=== PATIENT | female | born 1960 | race Caucasian/White ===

== ENCOUNTER 2018-08-07 11:23 | Observation (INO) | payer OTHER ==
--- NOTE | 2018-08-07 09:47 | PDGENHP ---
History & Physical Chief Complaint: Right breast cancer History of Present Illness: 57 year old female Currently undergoing chemo and taking Cotellic/Zelboraf and Eliquis and tolerating well. Reports there are two metastatic lesions in her brain which Drs would like to address with radiation but she must 1st have an MRI. Due to TE's unable to do at this time. Plan for OR swap to implants today Recommends surgery at [facility] for an overnight stay for monitoring Pertinent Past, Social, Family History: Noncontributory Relevant Physical Exam: Heart Reg rate and rhythm. Lungs CTA B. Bilateral breast intact expanders Cardiorespiratory Assessment: CTA B. Heart regular
[~2018-08-07 11:23] MED LIST: LR 1,000 ML IV SCH
[2018-08-07] MEDS ORDERED: LR 1,000 ML IV ONE (13:10)
[2018-08-07] MEDS ORDERED: GENTAMICIN SULFATE 80 MG/2 ML VIAL ONE (13:48)
[2018-08-07] MEDS ORDERED: BACITRACIN ZINC 14.2 GM OINTTUBE TP ONE (13:48)
[2018-08-07] MEDS ORDERED: METHYLENE BLUE 0.5% 50 MG/10 ML AMP ONE (13:48)
[2018-08-07] MEDS ORDERED: ceFAZolin 1 GM/5 ML SYR ONE (13:49)
[2018-08-07] MEDS ORDERED: BACITRACIN 50,000 UNITS/10 ML SYR IRR ONE (13:49)
[2018-08-07] MEDS ORDERED: LIDOCAINE 1% 300 MG/30 ML SDV ONE (13:52)
[2018-08-07] MEDS ORDERED: EPINEPHrine 1 MG/ML INJ ONE (13:52)
[2018-08-07] MEDS ORDERED: MIDAZOLAM 2 MG/2 ML VIAL IVP ONE (14:20)
--- NOTE | 2018-08-07 14:22 | PDANEPAE ---
ANE History of Present Illness breast reconstruction ANE Past Medical History - Cardiovascular History Hx Hypertension: No Hx Arrhythmias: No Hx Chest Pain: No Hx Coronary Artery / Peripheral Vascular Disease: No Hx CHF / Valvular Disease: No Hx Palpitations: No - Pulmonary History Hx COPD: No Hx Asthma/Reactive Airway Disease: No Hx Recent Upper Respiratory Infection: No Hx Oxygen in Use at Home: No Hx Sleep Apnea: No Sleep Apnea Screening Result - Last Documented: Negative - Neurologic History Hx Cerebrovascular Accident: No Hx Seizures: No Hx Dementia: No - Endocrine History Hx Diabetes: No Hypothyroid: No Hyperthyroid: No Obesity: no - Renal History Hx Renal Disorders: No Renal History Comment: recent uti, completed levaquin course - Liver History Hx Hepatic Disorders: No - Neurological & Psychiatric Hx Hx Neurological and Psychiatric Disorders: Yes Neurological / Psychiatric History Comment: anxiety - Cancer History Hx Cancer: Yes Cancer History Comment: breast cancer currently. melanoma. currently oral chemo/ hx of radiation - Congenital Disorder History Hx Congenital Disorders: No - GI History Hx Gastrointestinal Disorders: Yes Gastrointestinal History Comment: nausea with chemo occ - Other Health History Other Health History: reading glasses. rash that is side effect from chemo- left forearm - Chronic Pain History Chronic Pain: No - Surgical History Prior Surgeries: x3. bilateral mastectomy. melanoma removed. tonsillectomy ANE Review of Systems Review of Systems: - Exercise capacity Exercise capacity: >=4 METS METS (RN): 4 METS ANE Patient History - Allergies Allergies/Adverse Reactions: Sulfa (Sulfonamide Antibiotics) Allergy (Verified 07/10/18 15:36) Flushing - Home Medications Home medications: home medication list seen and reviewed Home Medications: Cobimetinib Fumarate 07/10/18 [Last Taken 08/06/18 19:00] Compazine 10mg (*) PRN 07/10/18 [Last Taken Unknown] DEXAMETHASONE 07/10/18 [Last Taken Unknown] Eliquis 07/10/18 [Last Taken 08/01/18] Escitalopram Oxalate 07/10/18 [Last Taken 08/06/18 19:00] Ibuprofen PRN 07/10/18 [Last Taken 07/30/18] Nystatin 07/10/18 [Last Taken Unknown] Potassium Chloride 07/10/18 [Last Taken 08/07/18 07:00] Sudafedrine 07/10/18 [Last Taken Unknown] Vemurafenib 07/10/18 [Last Taken 08/07/18 09:00] Xanax 0.5 07/10/18 [Last Taken 08/07/18 07:30] traMADol 07/10/18 [Last Taken 08/04/18] - NPO status NPO Since - Liquids (Date): 08/07/18 NPO Since - Liquids (Time): 08:00 NPO Since - Solids (Date): 08/06/18 NPO Since - Solids (Time): 22:00 - Anes Hx Anes Hx: no prior problems - Smoking Hx Smoking Status: Never smoked - Family Anes Hx Family Hx Anesthesia Complications: none ANE Labs/Vital Signs - Vital Signs Blood Pressure: 149/87 Heart Rate: 92 Respiratory Rate: 16 O2 Sat (%): 96 Height: 162.56 cm Weight: 68.946 kg ANE Physical Exam - Airway Mallampati Score: Class 2 Mouth exam: normal dental/mouth exam - Pulmonary Pulmonary: no respiratory distress - Cardiovascular Cardiovascular: regular rate and rhythym - ASA Status ASA Status: II ANE Anesthesia Plan Anesthesia Plan: GA w LMA
--- NOTE | 2018-08-07 14:24 | PDHPUP ---
History & Physical Update H&P update statement: This history and physical update is based on an assessment of the patient which was completed after admission or registration (within 24 hours), but prior to the surgery/procedure. H&P update: H&P reviewed & patient examined, no change in patient's condition since H&P completed
[2018-08-07] MEDS ORDERED: DEXAMETHASONE 4 MG/ML VIAL ONE (14:31)
[2018-08-07] MEDS ORDERED: ONDANSETRON 4 MG/2 ML VIAL ONE (14:31)
[2018-08-07] MEDS ORDERED: ROPIVACAINE HCL 150 MG/30 ML INJ ONE (14:32)
[2018-08-07] MEDS ORDERED: LIDOCAINE 2% 5 ML SDV ONE (14:32)
[2018-08-07] MEDS ORDERED: fentaNYL 100 MCG/2 ML INJ ONE ×2 (14:34→16:25)
[2018-08-07] MEDS ORDERED: PROPOFOL 200 MG/20 ML VIAL ONE (14:34)
[2018-08-07] MEDS ORDERED: ACETAMINOPHEN 325 MG TAB PO PRN (14:38)
[2018-08-07] MEDS ORDERED: D5W LR 1,000 ML IV SCH (14:45)
[2018-08-07] MEDS ORDERED: PROMETHAZINE HCL 25 MG/ML INJ IVP PRN (15:48)
[2018-08-07] MEDS ORDERED: LABETALOL HCL 5 MG/ML 20 ML MDV IVP PRN (15:48)
[2018-08-07] MEDS ORDERED: DIAZEPAM 5 MG/ML 1 ML SYR IVP PRN (15:48)
[2018-08-07] MEDS ORDERED: HYDROCODONE/APAP 5/325 TAB PO PRN (15:48)
[2018-08-07] MEDS ORDERED: ALBUTEROL 3 ML DEYVIAL IH PRN (15:48)
[2018-08-07] MEDS ORDERED: LR 500 ML IV PRN (15:48)
[2018-08-07] MEDS ORDERED: ACETAMINOPHEN 500 MG TAB PO PRN (15:48)
[2018-08-07] MEDS ORDERED: NALOXONE HCL 0.4 MG/ML INJ IVP PRN (15:48)
[2018-08-07] MEDS ORDERED: ONDANSETRON 4 MG/2 ML VIAL IVP PRN (15:48)
--- NOTE | 2018-08-07 16:14 | POSTOPPROG ---
Post Op Note Date of Operation: 08/07/18 Surgeon: Judson Serrano Floor Worker Transfer Bay: Earl JIN Anesthesiologist: Nate Bae Anesthesia: LMA Pre-op Diagnosis: Right breast cancer Post-op Diagnosis: Same Indication: Bilateral TE recon Procedure: Bilateral TE swap to implants Findings: Bilateral intact implants Inf/Abcess present in the surg proc area at time of surgery?: No EBL: Minimal (20cc) Total fluids administered: 800cc Complications: none
--- NOTE | 2018-08-07 16:15 | POSTANESTH ---
Post Anesthetic Evaluation Cardiovascular Status: Normal, Stable Respiratory Status: Normal, Stable Level of Consciousness/Mental Status: Can Participate in Eval Pain Control: Adequate, Prn Tx Ordered Nausea/Vomiting Control: Adequate, Prn Tx Ordered Complications Possibly Related to Anesthesia: None Noted
[2018-08-07] MEDS ORDERED: LABETALOL HCL 5 MG/ML 20 ML MDV ONE (16:25)
[2018-08-07] MEDS ORDERED: HYDROmorphONE/DILAUDID 2 MG/ML INJ ONE (16:25)
[2018-08-07] MEDS: fentaNYL 100 MCG/2 ML INJ IVP PRN ×2 (16:28→16:49)
[2018-08-07] MEDS: HYDROmorphONE/DILAUDID 2 MG/ML INJ IVP PRN ×2 (16:31→16:49)
[2018-08-07] MEDS: OXYCODONE/APAP 5/325 TAB PO PRN ×2 (18:47→22:46)
[2018-08-07] MEDS: VEMURAFENIB 240 MG PO SCH (22:11)
[2018-08-07] MEDS: ceFAZolin 2 GM/DEXTROSE 100 ML IV SCH (22:11)
[2018-08-07] MEDS ORDERED: [UNRECOGNIZED DRUG - OTHER] PO SCH (22:30)
--- NOTE | 2018-08-07 22:32 | GOP ---
DATE OF OPERATION: 08/07/2018 SURGEON: Judson Serrano MD AWAKE OVERNIGHT COUNSELOR: Earl Yee CST ANESTHESIA: LMA ANESTHESIOLOGIST: Nate Bae MD PREOPERATIVE DIAGNOSIS: Right breast cancer and bilateral absence of breasts and nipples. POSTOPERATIVE DIAGNOSIS: Right breast cancer and bilateral absence of breasts and nipples. PROCEDURE PERFORMED: Bilateral tissue knurling machine operator exchange, 2 permanent implants, and bilateral capsulotomy. FINDINGS: Bilateral intact expanders. SPECIMENS: None. ESTIMATED BLOOD LOSS: 20. INDICATIONS: The patient is a 57-year-old female, who was unfortunately diagnosed with a right breast cancer. She underwent bilateral skin-sparing mastectomies with immediate reconstruction. She required adjuvant therapy with chemo as well as radiation to the right breast. She developed metastasis to the brain, and she is currently undergoing chemotherapy. She presents today for exchange of her tissue expanders for permanent implants. DESCRIPTION OF PROCEDURE: The patient was met in the preoperative area, where the risks and benefits were discussed with her at length, which include, but not limited to, infection, bleeding, hematoma, wound healing problems, asymmetries, injury to the implant, mastectomy skin flap necrosis and further need for revision surgery. She was agreeable to this, and therefore, signed the operative consent. She was then brought into the operating room and prior to going asleep, a time- out was performed where all in the room agreed upon the site and the procedure to be performed. She received 2 g of Ancef perioperatively prior to any incision being made for surgical prophylaxis, and SCDs were placed for DVT prophylaxis. After the patient was prepped and draped in usual sterile fashion in the supine position, we began on the right side. She had a small wound dehiscence on the right breast that was ellipsed out. This was excised down to the AlloDerm, and the part of the AlloDerm that dehisced was also excised in an elliptical fashion. We then encountered the intact knurling machine operator, which was well incorporated within the pocket. This was popped, and in a closed sterile fashion, all the saline was taken out. The knurling machine operator, which was well- incorporated in the subpectoral pocket was then removed. We then examined what little fluid collection within the right pocket. A radial capsulotomy was then performed. This was performed laterally and superiorly, as well as medially and inferiorly, and also vertical scores because the radiated pocket was very noncompliant, and we needed this to relax. This was done with electrocautery. We then put a sizer in and inflated this to 375 cc. In order not put this under any undue tension because of wound healing issues and thin skin flaps, we decided upon a 375 cc implant. This was an Allergan SCX 375 cc. This will be placed on the right. The same exact procedure was done on the left side. There was no wound dehiscence. This healed mastectomy scar was incised with a 10 blade. This was down to the AlloDerm. The AlloDerm was incised. We encountered the tissue knurling machine operator intact. All of the saline was taken out of this, and this was taken out of the subpectoral pocket. Another radial capsulotomy was then performed. This was done laterally, superiorly, and medially keeping the AlloDerm intact inferiorly. We also inflated this in order for symmetry to put a sizer in, then inflated this to 375 cc. We, therefore, selected 375 cc SCF Allergan implants to be placed on both sides. Both pockets were washed out first with sterile saline and then triple antibiotic solution. My assistant executive housekeeper and I changed our gloves, wiped the pockets out and wiped the skin off with triple antibiotic solution. I then introduced each implant into the pockets and confirmed correct orientation. The wound was then closed. The AlloDerm was reapproximated with a 2-0 Vicryl running, and the skin was approximated with 3-0 Monocryl. On the left side, 4-0 Monocryl was then run. Due to the thinness of the skin, we then did interrupt horizontal mattress sutures on the right side with 5-0 nylon. The wounds were dressed with bacitracin, Mepilex Ag dressing, and a surgical support bra. The count was correct at the end of the case. There were no immediate complications. She was awakened and taken to PACU in good condition. IV FLUIDS: 800 COMPLICATIONS: None. /[id number]/MODL MTDD
[2018-08-07] MEDS ORDERED: ALPRAZolam 0.25 MG TAB PO PRN (22:47)
[2018-08-08] MEDS: ceFAZolin 2 GM/DEXTROSE 100 ML IV SCH (04:46)
[2018-08-08] MEDS: OXYCODONE/APAP 5/325 TAB PO PRN (04:46)
[2018-08-08] MEDS: VEMURAFENIB 240 MG PO SCH (08:22)
[2018-08-08 08:26] VITALS: BP 130/88
--- NOTE | 2018-08-08 08:47 | SOAPPROG ---
SOAP Progress Note Assessment/Plan: Assessment: POD#1 s/p bilateral tissue department assistant exchange to implants Plan: 08/08/18 08:44 1. PO pain control 2. Ween O2 3. Ambulate 4. DC later today Subjective: "I feel like I didn't have surgery!" Objective: Vital Signs Temp Pulse Resp BP Pulse Ox 36.8 C 94 16 130/88 H 99 08/08/18 07:31 08/08/18 07:31 08/08/18 07:31 08/08/18 08:26 08/08/18 07:31 08/07/18 08/08/18 08/09/18 05:59 05:59 05:59 Intake Total 4195 Output Total 20 Balance 4175 NAD, A&O Bilateral breast implants intact, minimal swelling and ecchymosis - Time Spent With Patient Time Spent With Patient: 30 min - Pending Discharge Pending Discharge Within 24 Hours: Yes Pending Discharge Date: 08/09/18 Pending Discharge Time: 11:00 ICD10 Worksheet Patient Problems: Problems Problem Status Onset Breast cancer Acute - ICD10 Problem Qualifiers (1) Breast cancer
--- NOTE | 2018-08-08 11:31 | PDDCSUM ---
Discharge Summary Discharge Summary: discharge date: 08/08/18 Admission date: 08/07/18 Diagnosis: right breast cancer, bilateral absence of breasts and nipples Reason for admission: bilateral tissue car greaser exchanged permanent implants Discharge condition: good Followup: Dr. Serrano, [facility] 08/14 945 a.m. hospital course: Rebeca was admitted postoperatively for observation after the above mentioned procedures. She was restarted on a regular diet as well as her chemotherapy medications. She tolerated the procedure well without complications her pain was well-controlled on oral pain medication she will continue after receiving IV antibiotics on oral antibiotics at home. I will have her restart her Elquis next Sunday. she will be discharged in a surgical support bra her bathing and wound care instructions were given she'll follow up in my office next week all her prescriptions were buried given preoperatively. she was discharged home in good condition
--- NOTE | 2018-08-08 11:54 | ASMTLACE ---
LACE Length of stay for Answers: Less than 1 day current admission Comorbidities - select Answers: Any tumor (including all that apply lymphoma or leukemia) # of Emergency department Answers: 0 visits in the last 6 months Social determinants Answers: Mental health diagnosis (anxiety, depression, pers onality disorders, etc.) Score: 5 Date Signed: 08/08/2018 11:53 AM Electronically Signed By:Janay Hammond RN
--- NOTE | 2018-08-08 11:57 | ASMTCMCOM ---
CM Note CM Note Notes: Chart reviewed. Patient s/p tissue envelope press operator exchange post reconstruction after beast cancer. She has no identifiable needs, CM available should needs arise. Plan: DC to home independently. Date Signed: 08/08/2018 11:56 AM Electronically Signed By:Janay Hammond RN
== END 2018-08-08 13:21 | disposition home or self-care (01) ==
LOC: F3E 12:37 → F1N 15:26
PROVIDERS: ADMIT Plastic Surgery; ATTEND Plastic Surgery
PROC: 0HPT0NZ Removal of Tissue Expander from Right Breast, Open Approach (ICD-10-PCS; principal; 2018-08-07 14:00)
PROC: 0H0V0JZ Alteration of Bilateral Breast with Synthetic Substitute, Open Approach (ICD-10-PCS; principal; 2018-08-07 14:00)
PROC: 0HPU0NZ Removal of Tissue Expander from Left Breast, Open Approach (ICD-10-PCS; principal; 2018-08-07 14:00)
DX: C50.911 Malignant neoplasm of unspecified site of right female breast (principal); C79.31 Secondary malignant neoplasm of brain
CPT/HCPCS: 11970; G0378; C1789; J0171; J0690; J1100; J1170; J1580; J2250; J2405; J2704; J2795; J3010; Q9968

== ENCOUNTER → 2018-08-19 | Outpatient (CLI) | payer OTHER ==
[~2018-08-19] MED LIST changes: +ACETAMINOPHEN 325 MG TAB PO ONE; +FUROSEMIDE 20 MG/2 ML VIAL IV ONE; -LR 1,000 ML IV SCH; +diphenhydrAMINE 25 MG CAP PO ONE
== END ==
LOC: F1NOP 16:51
PROVIDERS: ATTEND Internal Medicine Hematology & Oncology
PROC: 30233N1 Transfusion of Nonautologous Red Blood Cells into Peripheral Vein, Percutaneous Approach (ICD-10-PCS; principal; 2018-08-19)
DX: C50.919 Malignant neoplasm of unspecified site of unspecified female breast (principal); Z92.21 Personal history of antineoplastic chemotherapy
CPT/HCPCS: 36430; P9016; J1642; J1940

== ENCOUNTER 2018-08-28 15:12 | Inpatient (IN) | payer OTHER ==
[2018-08-28 16:06] LABS: PLATELET COUNT 607 10^3/uL (150-400)
--- NOTE | 2018-08-28 16:52 | EDPHY ---
H & P Stated Complaint: NAUSEA/HYPOXIA TACHYCARDIA/GOT FLUIDS AY CC Time Seen by Provider: 08/28/18 15:58 HPI/ROS: CHIEF COMPLAINT: Fatigue HISTORY OF PRESENT ILLNESS: 57-year-old female with metastatic melanoma presents with excessive fatigue. She was on oral chemotherapy until last week, when the chemotherapy stopped working. She was supposed to start immunotherapy today, but her insurance did not authorize a yet. She was seen in the [facility] and received 1 L of normal saline for probable dehydration. Decreased appetite tight recently, no vomiting or diarrhea. She feels excessively fatigued and is having difficulty ambulating because of fatigue. Also complains of gradually increasing abdominal girth and discomfort from ascites. Denies abdominal pain, shortness of breath or chest pain. No fever. Last packed red blood cell transfusion 2 weeks ago. s/p paracentesis months ago. REVIEW OF SYSTEMS: complete 10 point ROS reviewed and is negative except for the noted elements in the HPI - Personal History Current Tetanus Diphtheria and Acellular Pertussis (TDAP): No - Medical/Surgical History Hx Asthma: No Hx Chronic Respiratory Disease: No Hx Diabetes: No Hx Cardiac Disease: No Hx Renal Disease: No Hx Cirrhosis: No Hx Alcoholism: No Hx HIV/AIDS: No Hx Splenectomy or Spleen Trauma: No Other PMH: tonsilectomy; 3 c-sections; breast Ca; melanoma - Social History Smoking Status: Never smoked Alcohol Use: None Drug Use: None Additional Social History: Oncologist: Dr. Phillips - Physical Exam Exam: General Appearance: Alert, pleasant Eyes: Pupils equal and round, conjunctival pallor ENT, Mouth: Mucous membranes slightly dry Neck: Normal inspection Respiratory: Lungs are clear to auscultation Cardiovascular: Regular tachycardia Gastrointestinal: Abdomen is distended, no tenderness Neurological: A&O, nonfocal exam Skin: Warm and dry Extremities: Bilateral pedal edema Psychiatric: Mood and affect normal Constitutional: Initial Vital Signs Temperature (C) 37.5 C 08/28/18 15:23 Heart Rate 134 H 08/28/18 15:23 Respiratory Rate 20 08/28/18 15:23 Blood Pressure 114/81 H 08/28/18 15:23 O2 Sat (%) 85 L 08/28/18 15:23 O2 Delivery Mode Nasal Cannula O2 (L/minute) 3 Allergies/Adverse Reactions: Sulfa (Sulfonamide Antibiotics) Allergy (Verified 08/28/18 15:21) [place] Home Medications: Medication Instructions Recorded ALPRAZolam [Xanax 0.5 MG (*)] 0.5 mg PO TID PRN 07/10/18 Apixaban [Eliquis] 5 mg PO BID 07/10/18 Ibuprofen [Ibu] 600 mg PO TID PRN 07/10/18 Potassium Chloride [Klor-Con M20] 20 meq PO DAILY 07/10/18 Prochlorperazine Maleate 10 mg PO TID PRN 07/10/18 [Compazine 10mg (*)] traMADol [Ultram 50 mg (*)] 50 mg PO Q4 PRN 07/10/18 Furosemide [Lasix 20 MG (*)] 20 mg PO HS 08/28/18 Lisinopril [Zestril 10 mg (*)] 10 mg PO DAILY 08/28/18 Nystatin [Nystatin] 5 ml PO TID PRN 08/28/18 Ondansetron HCl [Zofran] 8 mg PO Q8H PRN 08/28/18 Medical Decision Making - Diagnostics EKG Interpretation: EKG interpreted by me reveals sinus tachycardia, rate 126, low voltage in the limb leads, poor R-wave progression. Interpretation: Abnormal EKG Imaging Results: Imaging Impressions Chest X-Ray 08/28/18 15:58 Impression: Hypoventilation and bibasilar atelectasis. Imaging: I viewed and interpreted images myself ED Course/Re-evaluation: This is a complicated patient with metastatic melanoma who presents mainly with fatigue. Fatigue is secondary to severe anemia, with a hemoglobin of 8. 1 unit packed red blood cells ordered. Tachycardia is probably secondary to dehydration as well as severe anemia. Will hold off on further IV fluids, given that she will need at least 2 units of packed red blood cells, and already has anasarca/tense ascites. Paracentesis will be performed tomorrow as inpatient. No indication for emergent paracentesis this evening. In addition, there is no evidence for infection. Chest x-ray reveals no evidence of pneumonia, abdomen is soft and nontender and I do not suspect SBP. The hospitalist service was consulted for admission. Dr. Carlita Rice was consulted and saw the patient in the ED. Differential Diagnosis: Differential diagnosis includes though is not limited to infectious etiology such as pneumonia or urinary tract infection, hyponatremia, acute coronary syndrome, pulmonary embolism - Data Points Laboratory Results: Laboratory Results 08/28/18 15:45 08/28/18 15:45 08/28/18 08/28/18 08/28/18 15:45 15:45 13:45 WBC 13.92 10^3/uL H 10^3/uL (3.80-9.50) RBC 2.23 10^6/uL L 10^6/uL (4.18-5.33) Hgb 6.7 g/dL L g/dL (12.6-16.3) Hct 21.3 % L % (38.0-47.0) MCV 95.5 fL fL (81.5-99.8) MCH 30.0 pg pg (27.9-34.1) MCHC 31.5 g/dL L g/dL (32.4-36.7) RDW 16.7 % H % (11.5-15.2) Plt Count 607 10^3/uL H 10^3/uL (150-400) MPV 9.1 fL fL (8.7-11.7) Neut % (Auto) Not Reported Lymph % (Auto) Not Reported Garland % (Auto) Not Reported Eos % (Auto) Not Reported Baso % (Auto) Not Reported Nucleat RBC Rel Count Not Reported Absolute Neuts (auto) Not Reported Absolute Lymphs (auto) Not Reported Absolute Monos (auto) Not Reported Absolute Eos (auto) Not Reported Absolute Basos (auto) Not Reported Absolute Nucleated RBC Not Reported Immature Gran % Not Reported Seg Neutrophils % 84.8 % % Band Neutrophils % 4.0 % % Lymphocytes % 5.1 % % Monocytes % 5.1 % % Eosinophils % 0.0 % % Basophils % 0.0 % % Metamyelocytes % 0.0 % % Myelocytes % 0.0 % % Promyelocytes % 0.0 % % Blast Cells % 0.0 % % Immature Gran # Not Reported Absolute Seg Neuts 11.80 10^3/uL H 10^3/uL (1.70-6.50) Absolute Band Neuts 0.56 10^3/uL 10^3/uL (0.00-0.70) Absolute Lymphocytes 0.71 10^3/uL L 10^3/uL (1.00-3.00) Absolute Monocytes 0.71 10^3/uL 10^3/uL (0.30-0.80) Absolute Eosinophils 0.00 10^3/uL L 10^3/uL (0.03-0.40) Absolute Basophils 0.00 10^3/uL L 10^3/uL (0.02-0.10) Absolute Metamyelocyte 0.00 10^3/mL 10^3/mL (0.00-0.00) Absolute Myelocytes 0.00 10^3/mL 10^3/mL (0.00-0.00) Absolute Promyelocytes 0.00 10^3/uL 10^3/uL (0.00-0.00) Absolute Plasma Cells 0.00 10^3/uL 10^3/uL (0.00-0.00) Nucleated RBCs 0 /100 WBC /100 WBC (0-0) Absolute Blast Cells 0.00 10^3/uL 10^3/uL (0.00-0.00) Plasma Cells % 0.0 % % Platelet Estimate INCREASED H (ADEQ) Polychromasia 1+ H Microcytic Cells 1+ H Oval Macrocytes 1+ H Elliptocytes 1+ H Smear Review By Pending PT 15.6 SEC H SEC (12.0-15.0) INR 1.22 H (0.83-1.16) APTT 30.2 SEC SEC (23.0-38.0) Sodium 129 mEq/L L mEq/L (135-145) Potassium 3.6 mEq/L mEq/L (3.3-5.0) Chloride 95 mEq/L L mEq/L (97-110) Carbon Dioxide 24 mEq/l mEq/l (22-31) Anion Gap 10 mEq/L mEq/L (6-14) BUN 22 mg/dL mg/dL (7-23) Creatinine 0.7 mg/dL mg/dL (0.6-1.0) Estimated GFR > 60 Glucose 138 mg/dL H mg/dL (70-100) Calcium 8.3 mg/dL L mg/dL (8.5-10.4) Total Bilirubin Conjugated Bilirubin Unconjugated Bilirubin AST ALT Alkaline Phosphatase Total Protein Albumin Lipase 08/28/18 13:45 WBC RBC Hgb Hct MCV MCH MCHC RDW Plt Count MPV Neut % (Auto) Lymph % (Auto) Gar[place] % (Auto) Eos % (Auto) Baso % (Auto) Nucleat RBC Rel Count Absolute Neuts (auto) Absolute Lymphs (auto) Absolute Monos (auto) Absolute Eos (auto) Absolute Basos (auto) Absolute Nucleated RBC Immature Gran % Seg Neutrophils % Band Neutrophils % Lymphocytes % Monocytes % Eosinophils % Basophils % Metamyelocytes % Myelocytes % Promyelocytes % Blast Cells % Immature Gran # Absolute Seg Neuts Absolute Band Neuts Absolute Lymphocytes Absolute Monocytes Absolute Eosinophils Absolute Basophils Absolute Metamyelocyte Absolute Myelocytes Absolute Promyelocytes Absolute Plasma Cells Nucleated RBCs Absolute Blast Cells Plasma Cells % Platelet Estimate Polychromasia Microcytic Cells Oval Macrocytes Elliptocytes Smear Review By PT INR APTT Sodium Potassium Chloride Carbon Dioxide Anion Gap BUN Creatinine Estimated GFR Glucose Calcium Total Bilirubin 1.3 mg/dL mg/dL (0.1-1.4) Conjugated Bilirubin 0.5 mg/dL mg/dL (0.0-0.5) Unconjugated Bilirubin 0.8 mg/dL mg/dL (0.0-1.1) AST 31 IU/L IU/L (14-46) ALT 44 IU/L IU/L (9-52) Alkaline Phosphatase 108 IU/L IU/L (38-126) Total Protein 7.2 g/dL g/dL (6.3-8.2) Albumin 3.9 g/dL g/dL (3.5-5.0) Lipase 122 IU/L IU/L (23-300) Medications Given: Acetaminophen (Tylenol) 650 mg PO Q4HRS PRN PRN Reason: Pain, Mild/Fever, Can Take PO Stop: 02/24/19 17:57 Last Admin: 08/28/18 18:29 Dose: 650 mg Hydromorphone HCl (Dilaudid) 0.2 - 0.4 mg IVP Q4HRS PRN PRN Reason: Pain, Severe Unable to Take PO Stop: 09/07/18 17:57 Last Admin: 08/28/18 20:48 Dose: 0.4 mg Departure - Departure Disposition: [facility]
[2018-08-28 17:17] LABS: INR 1.22 (0.83-1.16); PROTIME(PATIENT) 15.6 SEC (12.0-15.0)
[2018-08-28] MEDS ORDERED: HYDROCODONE/APAP 5/325 TAB PO PRN (17:58)
[2018-08-28] MEDS ORDERED: ONDANSETRON DISINTEGRATING 4 MG TAB PO PRN ×2 (17:58→21:48)
[2018-08-28] MEDS: ACETAMINOPHEN 325 MG TAB PO PRN (18:29)
--- NOTE | 2018-08-28 20:16 | GCON ---
REFERRING PHYSICIAN: Gabriela Hutchinson MD REASON FOR CONSULTATION: Metastatic melanoma. HPI: The patient is a 57-year-old woman with metastatic melanoma. She is followed by Dr. Phillips. She had a stage IIC (T4b N0) melanoma of the abdominal wall 10/2016. She was diagnosed in February with metastatic disease to liver, brain and bone. Testing demonstrated a BRAF mutation. She began vemurafenib and cobimetinib in March. She responded very well but developed progression in July. A PET scan (08/21/2018) demonstrated diffuse peritoneal carcinomatosis , a small right pleural effusion and multiple new bone metastases. Plans were made for her to begin immunotherapy with ipilimumab and nivolumab, but insurance authorization has not yet been obtained. She is admitted today with increasing abdominal distention and hypoxia. She is accompanied by one of her daughters. PAST MEDICAL HISTORY: 1. Metastatic melanoma, as above. 2. Clinical IIIA (T3 N1) invasive ductal carcinoma of the right breast, diagnosed 09/2016. ER positive, TN negative, HER-2 FISH negative, Ki67 20%. She received neoadjuvant chemotherapy with dose-dense AC followed by weekly Taxol. She had bilateral mastectomies 07/2017. Pathology demonstrated 1.5 cm of residual disease in the breast and 1 positive lymph node. She received PMRT. Xeloda was administered during part of PMRT, but was discontinued due to skin toxicity. She completed her reconstruction 08/07/2018, with Dr. Serrano. She is on anastrazole. 3. Left port-associated IJ clot, approximately 04/2018; Eliquis since then. PAST SURGICAL HISTORY: As above. CURRENT MEDICATIONS: Anastrozole 1 mg daily, Eliquis 5 mg twice daily, citalopram 10 mg daily, Lasix 20 mg daily, Zofran p.r.n., tramadol p.r.n., Xanax p.r.n. ALLERGIES: No known drug allergies. SOCIAL HISTORY: She lives with one of her daughters. FAMILY HISTORY: Half-brother had lymphoma; paternal aunt, breast cancer; maternal aunt, brain tumor. REVIEW OF SYSTEMS: GENERAL: Fatigue. No fever or chills. HEENT: No vision changes. No mucositis. CARDIOVASCULAR: No chest pain, palpitations. She has noted no significant lower extremity edema. RESPIRATORY: She noted low oxygen level at home. No orthopnea. No PND. No wheezing or cough. GI: Slight nausea. No diarrhea, constipation or GI bleeding. Per HPI. HEMATOLOGIC: No bleeding. BREASTS: No erythema over the incisions. No pain. MUSCULOSKELETAL : No new bony complaints. She had some right upper extremity lymphedema following her mastectomy, which has improved. NEUROLOGIC: No headache, numbness, weakness, confusion. PHYSICAL EXAM: VITAL SIGNS: Blood pressure 128/83, pulse 123, respirations 16 , 98% on room air, afebrile. GENERAL: A very pleasant woman in no acute distress. Comfortable lying flat. Alert and oriented. HEENT: No scleral icterus. CARDIOVASCULAR: Tachy. Regular rate and rhythm. No significant pretibial edema. LUNGS: Supine exam, clear to auscultation. ABDOMEN: Distended, tense. No focal tenderness. SKIN: Pale. No petechiae, ecchymoses. Well-healed long incision over the upper abdomen (prior melanoma excision). NEUROLOGIC: Grossly nonfocal. LABORATORY STUDIES: WBC 13.9, normal differential, hemoglobin 6.7, platelets 607,000. (08/23/2018) hemoglobin 9.9, platelets 500,000. Sodium 129, potassium 3.6, chloride 95, bicarbonate 24, BUN 22, creatinine 0.7, glucose 138. Calcium 8.3, albumin 3.9, normal LFTs. Albumin 3.9. PT 15.6, INR 1.22, PTT 30.2. Venous lactate 0.8. RADIOLOGIC STUDIES: Chest x-ray demonstrated low lung volumes with bilateral perihilar and bibasilar atelectasis. No effusion. IMPRESSION: 1. Metastatic melanoma with peritoneal carcinomatosis. 2. Acute on chronic anemia. 3. History of left IJ port-associated deep venous thrombosis, on anticoagulation with Eliquis. 4. History of stage III right breast cancer, ER positive, TN negative, HER-2 negative, status post neoadjuvant chemotherapy, PMRT, now on endocrine therapy with anastrozole. PLAN: She will have a therapeutic paracentesis if an appropriate fluid pocket is demonstrated by ultrasound. She will be transfused. She has had no obvious bleeding by history. She has no evidence of hemolysis (normal bilirubin). If her hemoglobin does not respond appropriately to transfusion, consider CT to evaluate for retroperitoneal hematoma, etc. Discussed with Dr. Hutchinson. /[id number]/MODL MTDD
[2018-08-28] MEDS: HYDROmorphONE/DILAUDID 1 MG/ML INJ IVP PRN (20:48)
--- NOTE | 2018-08-28 21:05 | PDGENHP ---
History and Physical - Chief Complaint abdominal distension - History of Present Illness 57 yo F with PMH of metastatic melanoma with mets to liver, bone, brain and peritoneal carcinomatosis as well as stage 3a invasive ductal carcinoma of right breast admitted with increased abdominal distension and pain as well as increased fatigue and sob. She had previously been responding well to therapy with vemurafenib and cobimetinib but has since progressed since July by PET scan and is now awaiting insurance approval to begin new immunotherapy. She otherwise denies any new sxs really other than increased abdominal distension with associated sob and early satiety. She denies fever, cough, or significant pain anywhere--she notes she is generally uncomfortable however. History Information - Allergies/Home Medication List Allergies/Adverse Reactions: Sulfa (Sulfonamide Antibiotics) Allergy (Verified 08/28/18 15:21) [place] Home Medications: ALPRAZolam [Xanax 0.5 MG (*)] 0.5 mg PO TID PRN 07/10/18 [Last Taken 08/28/18 13 :00] Apixaban [Eliquis] 5 mg PO BID 07/10/18 [Last Taken 08/28/18 09:00] Ibuprofen [Ibu] 600 mg PO TID PRN 07/10/18 [Last Taken 08/28/18 13:00] Potassium Chloride [Klor-Con M20] 20 meq PO DAILY 07/10/18 [Last Taken 08/28/18] Prochlorperazine Maleate [Compazine 10mg (*)] 10 mg PO TID PRN 07/10/18 [Last Taken 08/28/18 09:00] traMADol [Ultram 50 mg (*)] 50 mg PO Q4 PRN 07/10/18 [Last Taken 08/28/18 14:00] Furosemide [Lasix 20 MG (*)] 20 mg PO HS 08/28/18 [Last Taken 08/27/18] Lisinopril [Zestril 10 mg (*)] 10 mg PO DAILY 08/28/18 [Last Taken 08/28/18] Nystatin [Nystatin] 5 ml PO TID PRN 08/28/18 [Last Taken 08/27/18] Ondansetron HCl [Zofran] 8 mg PO Q8H PRN 08/28/18 [Last Taken Unknown] I have personally reviewed and updated: family history, medical history, social history, surgical history - Past Medical History cancer (metastatic melanoma and stage 3 breast cancer) Additional medical history: IJ associated clot - Surgical History Reports: mastectomy (bilateral and reconstruction) - Family History Positive for: cancer (aunt with breast and another aunt with brain) - Social History Smoking Status: Never smoked Alcohol Use: None Drug Use: None Review of Systems Review of Systems: ROS: 10pt was reviewed & negative except for what was stated in HPI & below Physical Exam Physical Exam: Temp Pulse Resp BP Pulse Ox 37.8 C 118 H 18 109/64 99 08/28/18 19:19 08/28/18 19:19 08/28/18 19:19 08/28/18 19:19 08/28/18 19:19 O2 (L/minute) 3 Constitutional: no apparent distress, chronically ill appearing, uncomfortable Eyes: PERRL, anicteric sclera Ears, Nose, Mouth, Throat: moist mucous membranes, hearing normal Cardiovascular: regular rate and rhythym, no murmur, rub, or gallop, edema Respiratory: no respiratory distress, inspiratory crackles Gastrointestinal: ascites, distension, No no palpable masses, No tenderness, No guarding, No rebound Genitourinary: no bladder tenderness Skin: warm, normal color Musculoskeletal: no muscle tenderness Neurologic: AAOx3 Psychiatric: interacting appropriately, not anxious, not encephalopathic Lab Data & Imaging Review 08/28/18 15:45 08/28/18 15:45 WBC 13.92 10^3/uL (3.80-9.50) H 08/28/18 15:45 RBC 2.23 10^6/uL (4.18-5.33) L 08/28/18 15:45 Hgb 6.7 g/dL (12.6-16.3) L 08/28/18 15:45 Hct 21.3 % (38.0-47.0) L 08/28/18 15:45 MCV 95.5 fL (81.5-99.8) 08/28/18 15:45 MCH 30.0 pg (27.9-34.1) 08/28/18 15:45 MCHC 31.5 g/dL (32.4-36.7) L 08/28/18 15:45 RDW 16.7 % (11.5-15.2) H 08/28/18 15:45 Plt Count 607 10^3/uL (150-400) H 08/28/18 15:45 MPV 9.1 fL (8.7-11.7) 08/28/18 15:45 Neut % (Auto) Not Reported 08/28/18 15:45 Lymph % (Auto) Not Reported 08/28/18 15:45 [place] % (Auto) Not Reported 08/28/18 15:45 Eos % (Auto) Not Reported 08/28/18 15:45 Baso % (Auto) Not Reported 08/28/18 15:45 Nucleat RBC Rel Count Not Reported 08/28/18 15:45 Absolute Neuts (auto) Not Reported 08/28/18 15:45 Absolute Lymphs (auto) Not Reported 08/28/18 15:45 Absolute Monos (auto) Not Reported 08/28/18 15:45 Absolute Eos (auto) Not Reported 08/28/18 15:45 Absolute Basos (auto) Not Reported 08/28/18 15:45 Absolute Nucleated RBC Not Reported 08/28/18 15:45 Immature Gran % Not Reported 08/28/18 15:45 Seg Neutrophils % 84.8 % 08/28/18 15:45 Band Neutrophils % 4.0 % 08/28/18 15:45 Lymphocytes % 5.1 % 08/28/18 15:45 Monocytes % 5.1 % 08/28/18 15:45 Eosinophils % 0.0 % 08/28/18 15:45 Basophils % 0.0 % 08/28/18 15:45 Metamyelocytes % 0.0 % 08/28/18 15:45 Myelocytes % 0.0 % 08/28/18 15:45 Promyelocytes % 0.0 % 08/28/18 15:45 Blast Cells % 0.0 % 08/28/18 15:45 Immature Gran # Not Reported 08/28/18 15:45 Absolute Seg Neuts 11.80 10^3/uL (1.70-6.50) H 08/28/18 15:45 Absolute Band Neuts 0.56 10^3/uL (0.00-0.70) 08/28/18 15:45 Absolute Lymphocytes 0.71 10^3/uL (1.00-3.00) L 08/28/18 15:45 Absolute Monocytes 0.71 10^3/uL (0.30-0.80) 08/28/18 15:45 Absolute Eosinophils 0.00 10^3/uL (0.03-0.40) L 08/28/18 15:45 Absolute Basophils 0.00 10^3/uL (0.02-0.10) L 08/28/18 15:45 Absolute Metamyelocyte 0.00 10^3/mL (0.00-0.00) 08/28/18 15:45 Absolute Myelocytes 0.00 10^3/mL (0.00-0.00) 08/28/18 15:45 Absolute Promyelocytes 0.00 10^3/uL (0.00-0.00) 08/28/18 15:45 Absolute Plasma Cells 0.00 10^3/uL (0.00-0.00) 08/28/18 15:45 Nucleated RBCs 0 /100 WBC (0-0) 08/28/18 15:45 Absolute Blast Cells 0.00 10^3/uL (0.00-0.00) 08/28/18 15:45 Plasma Cells % 0.0 % 08/28/18 15:45 Platelet Estimate INCREASED (ADEQ) H 08/28/18 15:45 Polychromasia 1+ H 08/28/18 15:45 Microcytic Cells 1+ H 08/28/18 15:45 Oval Macrocytes 1+ H 08/28/18 15:45 Elliptocytes 1+ H 08/28/18 15:45 PT 15.6 SEC (12.0-15.0) H 08/28/18 13:45 INR 1.22 (0.83-1.16) H 08/28/18 13:45 APTT 30.2 SEC (23.0-38.0) 08/28/18 13:45 VBG Lactic Acid 0.8 mmol/L (0.7-2.1) 08/28/18 17:09 Sodium 129 mEq/L (135-145) L 08/28/18 15:45 Potassium 3.6 mEq/L (3.3-5.0) 08/28/18 15:45 Chloride 95 mEq/L (97-110) L 08/28/18 15:45 Carbon Dioxide 24 mEq/l (22-31) 08/28/18 15:45 Anion Gap 10 mEq/L (6-14) 08/28/18 15:45 BUN 22 mg/dL (7-23) 08/28/18 15:45 Creatinine 0.7 mg/dL (0.6-1.0) 08/28/18 15:45 Estimated GFR > 60 08/28/18 15:45 Glucose 138 mg/dL (70-100) H 08/28/18 15:45 Calcium 8.3 mg/dL (8.5-10.4) L 08/28/18 15:45 Total Bilirubin 1.3 mg/dL (0.1-1.4) 08/28/18 13:45 Conjugated Bilirubin 0.5 mg/dL (0.0-0.5) 08/28/18 13:45 Unconjugated Bilirubin 0.8 mg/dL (0.0-1.1) 08/28/18 13:45 AST 31 IU/L (14-46) 08/28/18 13:45 ALT 44 IU/L (9-52) 08/28/18 13:45 Alkaline Phosphatase 108 IU/L (38-126) 08/28/18 13:45 Total Protein 7.2 g/dL (6.3-8.2) 08/28/18 13:45 Albumin 3.9 g/dL (3.5-5.0) 08/28/18 13:45 Lipase 122 IU/L (23-300) 08/28/18 13:45 Patient ABO/Rh A POSITIVE 08/28/18 17:04 Antibody Screen NEGATIVE 08/28/18 17:04 Crossmatch IS Only See Detail 08/28/18 17:04 Visualized and Interpreted Chest x-ray results: Yes Chest X-Ray results: no infiltrate, other (hypoventilation, bibasilar atelectasis) Visualized and Interpreted EKG results: Yes EKG Interpretation: Positive for: normal sinsus rhythm Assessment & Plan Assessment: 57 yo F with hx of metastatic melanoma as well as stage 3 breast cancer admitted with increased abdominal distension and generalized malaise # abdominal distension: with known peritoneal carcinomatosis and while this could represent progression of disease may also be ascites. US pending, if significant ascites present will proceed with paracentesis. Oncology evaluated. # acute on chronic anemia: per daughter last transfusion was last week--in review of labs it appears that pre-transfusion her hgb was 6.9, then up to 9 and now back to 6.7. Nothing to suggest active bleeding. Last chemo in July sounds like so unclear if counts are still low due to that. Will transfuse, will check occult blood. Given abd distension could be slow retroperitoneal bleed but seems less likely given low counts last week as well. trending. # metastatic melanoma/stage 3 breast cancer: appreciate oncology input, currently treatment for melanoma on hold as above # hx of IJ associated clot: on apixaban, will hold for now given worsening anemia # acute hypoxic respiratory failure: on arrival o2 sats of 85% on RA, improved to mid 90s on 3L, suspect related to abdominal distension and atelectasis, IS, ? paracentesis as above # generalized weakness: in the setting of above and progression of disease, pt/ ot to be involved # IP status, will require > 48 hours stay for eval/mgmt of above Patient new to my care. Old records reviewed and summarized as above. Care plan reviewed with ER doctor and Dr. Rice, further hx obtained from patients daughter present at bedside.
[2018-08-28] MEDS ORDERED: NYSTATIN SUSP 500000 UNIT/5 ML UD LIQ PO PRN (21:48)
--- NOTE | 2018-08-28 23:35 | CPEKG ---
Test Reason : OPEN Blood Pressure : / mmHG Vent. Rate : 126 BPM Atrial Rate : 126 BPM P-R Int : 137 ms QRS Dur : 080 ms QT Int : 315 ms P-R-T Axes : 042 -05 061 degrees QTc Int : 457 ms Sinus tachycardia Low voltage, precordial leads Consider anterior infarct Confirmed by Genevieve Ramires ([id number]) on 08/28/2018 11:34:52 PM Referred By: Confirmed By:Genevieve Ramires
[2018-08-29] MEDS: HYDROmorphONE/DILAUDID 1 MG/ML INJ IVP PRN ×2 (07:37→11:29)
[2018-08-29] MEDS ORDERED: LISINOPRIL 10 MG TAB PO SCH (09:00)
[2018-08-29] MEDS ORDERED: FUROSEMIDE 20 MG TAB PO SCH (09:00)
[2018-08-29 09:56] LABS: PLATELET COUNT 536 10^3/uL (150-400)
[2018-08-29] MEDS: ONDANSETRON 4 MG/2 ML VIAL IVP PRN (10:02)
--- NOTE | 2018-08-29 10:02 | PDMN ---
Medical Necessity Medical necessity: Pt meets inpt criteria per MD order and Oncology GRG and Respiratory Failure GRG. 57 y/o w/hx of metastatic melanoma w/peritoneal carcinomatosis and stage 3 breast cancer presenting w/increased abdominal distension/pain, gen malaise, acute hypoxic resp failure w/RA sats of 85%, severe anemia w/H&H of 6.7/21.3 requiring transfusion. IV Dilaudid for pain, suppl O2, oncology consult, abd US pending (may need paracentesis depending on US findings). Anticipate>2MN for further eval/management of above.
[2018-08-29] MEDS ORDERED: LIDOCAINE 1% 300 MG/30 ML SDV ONE (11:36)
[2018-08-29] MEDS ORDERED: ALBUMIN 25% 100 ML IV ONE (12:12)
--- NOTE | 2018-08-29 12:59 | ASMTCMCOM ---
CM Note CM Note Notes: Discussed pt's case in rounds. Pt admitted for abdominal pain, ascites, anemia in the setting of metastatic melanoma with mets to liver, bone and brain. Pt current with [facility]. Referral sent to them. Pt to receive paracentesis today and discuss the possibility of placing a permanent drain with the hospitalist. Therapy evals pending. D/C needs TBD. D/C Plan: [facility] and possibly home health RN? Date Signed: 08/29/2018 12:57 PM Electronically Signed By:Karina Soto
[2018-08-29] MEDS ORDERED: ALBUMIN 25% 200 ML IV ONE ×2 (14:17→20:12)
--- NOTE | 2018-08-29 14:29 | HOSPPROG ---
Hospitalist Progress Note Assessment/Plan: 57 yo f w metastatic melanoma here w ascites ascites: s/p therapeutic paracentesis she is still pursuing immunotherapy for CA so not a time for a palliative drain hypotension: 2/2 volume loss from paracentesis give albumin again dc lisinopril- hasnt taken it in a while dc lasix- minimal role in management of malignant ascites melanoma: plans for immunotherapy proph: anticoagulated as outpt uti: + UA w sx and low grade temp start ceftriaxone\ dispo: home if less hypotensive Subjective: case d/w dr call. symptomaic improvement but hypotension after 7 L paracentesis Objective: Vital Signs Temp Pulse Resp BP Pulse Ox 36.9 C 110 H 20 87/47 L 95 08/29/18 08:13 08/29/18 08:13 08/29/18 08:13 08/29/18 13:51 08/29/18 08:13 Laboratory Results 08/29/18 08:27 08/29/18 08:27 08/28/18 08/29/18 08/30/18 05:59 05:59 05:59 Intake Total 400 Output Total 250 6900 Balance 150 -6900 PT 15.6 SEC (12.0-15.0) H 08/28/18 13:45 INR 1.22 (0.83-1.16) H 08/28/18 13:45 - Physical Exam Constitutional: no apparent distress, appears nourished Eyes: PERRL, anicteric sclera Ears, Nose, Mouth, Throat: moist mucous membranes, hearing normal Cardiovascular: regular rate and rhythym, no murmur, rub, or gallop Respiratory: no respiratory distress, no rales or rhonchi Gastrointestinal: normoactive bowel sounds, soft, non-tender abdomen, ascites Genitourinary: no bladder fullness, No holguin in urethra Skin: warm Musculoskeletal: full muscle strength, no muscle tenderness Neurologic: AAOx3 ICD10 Worksheet Patient Problems: Problems Problem Status Onset Breast cancer Acute
--- NOTE | 2018-08-29 15:48 | SOAPPROG ---
SOAP Progress Note Assessment/Plan: Assessment: 1. Metastatic melanoma-Progressive disease after BRAF/MEK inhibitor. Patient to start ipi/nivo soon. 2. Malignant ascites-s/p large volume paracentesis. Feels better. Getting albumin Plan: MRI of brain with conscience sedation is scheduled next week for staging. Will try to arrange for tomorrow. Anticipate discharge soon with follow up with Dr. Phillips. 08/29/18 15:44 Subjective: patient sleeping. requests that I not wake her. Objective: Vital Signs Temp Pulse Resp BP Pulse Ox 36.9 C 110 H 20 87/47 L 95 08/29/18 08:13 08/29/18 08:13 08/29/18 08:13 08/29/18 13:51 08/29/18 08:13 Laboratory Results 08/29/18 08:27 08/29/18 08:27 08/28/18 08/29/18 08/30/18 05:59 05:59 05:59 Intake Total 400 Output Total 250 6900 Balance 150 -6900 PT 15.6 SEC (12.0-15.0) H 08/28/18 13:45 INR 1.22 (0.83-1.16) H 08/28/18 13:45 Physical Exam - Physical Exam General Appearance: no apparent distress ICD10 Worksheet Patient Problems: Problems Problem Status Onset Breast cancer Acute
[2018-08-29] MEDS: ACETAMINOPHEN 325 MG TAB PO PRN ×2 (17:21→23:41)
[2018-08-29] MEDS ORDERED: NS 1,000 ML IV SCH (20:15)
[2018-08-30] MEDS: CALCIUM CARBONATE 500 MG CHEWABLE TAB PO PRN (03:26)
[2018-08-30 03:59] LABS: PLATELET COUNT 398 10^3/uL (150-400)
[2018-08-30] MEDS: ONDANSETRON 4 MG/2 ML VIAL IVP PRN (07:54)
[2018-08-30] MEDS: HYDROmorphONE/DILAUDID 1 MG/ML INJ IVP PRN ×2 (09:11→12:53)
--- NOTE | 2018-08-30 11:16 | HOSPPROG ---
Hospitalist Progress Note Assessment/Plan: 57 yo female, metastatic melanoma admitted because of symptomatic ascites ascites: s/p therapeutic large volume paracentesis yesterday -pursuing immunotherapy so no palliative drain placed hypotension: 2/2 volume loss from paracentesis -given albumin -dc lisinopril/lasix -gentle IVF hydration anemia -agreeable to transfusion melanoma: plans for immunotherapy -MRI today with anesthesia for sedation uti: + UA w sx and tmax 101 yesterday -ceftriaxone IV pending culture DVT prophy: anticoagulated as outpt with eliquis/on hold currently dispo: possible discharge tomorrow depending upon BP, re-eval after transfusion Subjective: Feeling OK, family in room. Very nervous about MRI, requesting sedation. Objective: Vital Signs Temp Pulse Resp BP Pulse Ox 98.6 F 105 H 16 88/48 L 95 08/30/18 07:32 08/30/18 07:32 08/30/18 07:32 08/30/18 07:32 08/30/18 07:32 Laboratory Results 08/30/18 03:30 08/29/18 08:27 08/28/18 08/29/18 08/30/18 11:59 11:59 11:59 Intake Total 400 2090 Output Total 250 7250 Balance 150 -5160 PT 15.6 SEC (12.0-15.0) H 08/28/18 13:45 INR 1.22 (0.83-1.16) H 08/28/18 13:45 - Time Spent With Patient Time Spent with Patient: greater than 35 minutes Time Spent with Patient: Greater than 35 minutes spent on this patients care, greater than 50% of time spent counseling, educating, and coordinating care regarding the above mentioned plan. - Physical Exam Constitutional: chronically ill appearing Ears, Nose, Mouth, Throat: moist mucous membranes, hearing normal Cardiovascular: tachycardia Respiratory: no respiratory distress, no rales or rhonchi, clear to auscultation Gastrointestinal: distension, No tenderness Skin: warm Psychiatric: interacting appropriately, not anxious, not encephalopathic, thought process linear ICD10 Worksheet Patient Problems: Problems Problem Status Onset Breast cancer Acute
[2018-08-30] MEDS: ALPRAZolam 0.25 MG TAB PO PRN (13:22)
--- NOTE | 2018-08-30 14:29 | ASMTCMCOM ---
CM Note CM Note Notes: Pt lives with daughter and son-in-law and had paracentesis yesterday, then had hypotension. PT recommending home care and pt has worked with [facility] in the past and liked them. Referral sent to [facility]. Likely discharge for tomorrow. [facility] as [facility]. CM to follow. D/C Plan: Home with HC, likely [facility], pending acceptance. Date Signed: 08/30/2018 02:25 PM Electronically Signed By:Karina Soto
[2018-08-30] MEDS ORDERED: PROPOFOL/EMULSION 500 MG/50 ML BOTTLE IV ONE (15:56)
[2018-08-30] MEDS ORDERED: PROPOFOL 200 MG/20 ML VIAL ONE (15:56)
[2018-08-30] MEDS ORDERED: MIDAZOLAM 2 MG/2 ML VIAL ONE (16:07)
[2018-08-30] MEDS ORDERED: GADOBUTROL 10 ML VIAL IVP ONE (16:13)
--- NOTE | 2018-08-30 16:56 | SOAPPROG ---
SOAP Progress Note Assessment/Plan: A/P: * Peritoneal carcinomatosis, ascties: s/p large volume tap (6.9 L) yesterday. * Metastatic melanoma: progressed on BRAF-directed therapy, plan for ipi/nivo when insurance auth obtained. * Anemia: no clinical evidence of bleeding, Eliquis held for paracentesis. Transfused. * h/o port-assoc. IJ clot: Eliquis held for procedure. Likely home soon if anemia stable. 08/30/18 16:53 Subjective: Pt not on floor (getting MRI). O: VS reviewed. Laboratory Tests 08/30/18 08/30/18 08/30/18 03:30 14:20 14:20 WBC 11.68 H Hgb 6.2 L 7.6 L Hct 19.1 L 23.1 L Plt Count 398 Sodium 131 L Potassium 4.0 Chloride 99 Carbon Dioxide 25 BUN 26 H Creatinine 0.8 Glucose 90 Objective: Vital Signs Temp Pulse Resp BP Pulse Ox 37.9 C 110 H 16 90/57 L 95 08/30/18 12:00 08/30/18 12:00 08/30/18 12:00 08/30/18 12:00 08/30/18 07:32 Laboratory Results 08/30/18 14:20 08/30/18 14:20 08/29/18 08/30/18 08/31/18 05:59 05:59 05:59 Intake Total 400 2090 Output Total 250 7250 Balance 150 -5160 PT 15.6 SEC (12.0-15.0) H 08/28/18 13:45 INR 1.22 (0.83-1.16) H 08/28/18 13:45 ICD10 Worksheet Patient Problems: Problems Problem Status Onset Breast cancer Acute
[2018-08-30] MEDS ORDERED: NALOXONE HCL 0.4 MG/ML INJ IVP PRN (17:23)
--- NOTE | 2018-08-30 17:23 | PDANEPAE ---
ANE Past Medical History - Cardiovascular History Hx Hypertension: No Hx Arrhythmias: No Hx Chest Pain: No Hx Coronary Artery / Peripheral Vascular Disease: No Hx CHF / Valvular Disease: No Hx Palpitations: No - Pulmonary History Hx COPD: No Hx Asthma/Reactive Airway Disease: No Hx Recent Upper Respiratory Infection: No Hx Oxygen in Use at Home: No Hx Sleep Apnea: No - Neurologic History Hx Cerebrovascular Accident: No Hx Seizures: No Hx Dementia: No - Endocrine History Hx Diabetes: No - Renal History Hx Renal Disorders: No Renal History Comment: recent uti, completed levaquin course - Liver History Hx Hepatic Disorders: No - Neurological & Psychiatric Hx Hx Neurological and Psychiatric Disorders: Yes Neurological / Psychiatric History Comment: anxiety - Cancer History Hx Cancer: Yes Cancer History Comment: breast cancer currently. melanoma. currently oral chemo/ hx of radiation - Congenital Disorder History Hx Congenital Disorders: No - GI History Hx Gastrointestinal Disorders: Yes Gastrointestinal History Comment: nausea with chemo occ - Other Health History Other Health History: reading glasses. rash that is side effect from chemo- left forearm - Chronic Pain History Chronic Pain: No - Surgical History Prior Surgeries: x3. bilateral mastectomy. melanoma removed. tonsillectomy ANE Review of Systems Review of Systems: ANE Patient History - Allergies Allergies/Adverse Reactions: Sulfa (Sulfonamide Antibiotics) Allergy (Verified 08/28/18 15:21) [place] - Home Medications Home Medications: ALPRAZolam [Xanax 0.5 MG (*)] 0.5 mg PO TID PRN 07/10/18 [Last Taken 08/28/18 13 :00] Apixaban [Eliquis] 5 mg PO BID 07/10/18 [Last Taken 08/28/18 09:00] Ibuprofen [Ibu] 600 mg PO TID PRN 07/10/18 [Last Taken 08/28/18 13:00] Potassium Chloride [Klor-Con M20] 20 meq PO DAILY 07/10/18 [Last Taken 08/28/18] Prochlorperazine Maleate [Compazine 10mg (*)] 10 mg PO TID PRN 07/10/18 [Last Taken 08/28/18 09:00] traMADol [Ultram 50 mg (*)] 50 mg PO Q4 PRN 07/10/18 [Last Taken 08/28/18 14:00] Furosemide [Lasix 20 MG (*)] 20 mg PO HS 11/07/18 [Last Taken 08/27/18] Lisinopril [Zestril 10 mg (*)] 10 mg PO DAILY 08/28/18 [Last Taken 08/28/18] Nystatin [Nystatin] 5 ml PO TID PRN 08/28/18 [Last Taken 08/27/18] Ondansetron HCl [Zofran] 8 mg PO Q8H PRN 08/28/18 [Last Taken Unknown] - Smoking Hx Smoking Status: Never smoked - Alcohol Use Alcohol Use: None - Family Anes Hx Family Hx Anesthesia Complications: none ANE Labs/Vital Signs - Labs Result Diagrams: 08/30/18 14:20 08/30/18 14:20 - Vital Signs Blood Pressure: 90/57 Heart Rate: 110 Respiratory Rate: 16 O2 Sat (%): 95 Height: 165.1 cm Weight: 74.752 kg ANE Physical Exam - Airway Mallampati Score: Class 2 - ASA Status ASA Status: III ANE Anesthesia Plan Anesthesia Plan: GA w LMA Urgent/Emergent Case: Vimal bridges completed preop but documented later for safe timely pt care
--- NOTE | 2018-08-30 17:25 | POSTANESTH ---
Post Anesthetic Evaluation Cardiovascular Status: Similar to Pre-Op Cond Respiratory Status: Normal, Stable Level of Consciousness/Mental Status: Can Participate in Eval Pain Control: Adequate, Prn Tx Ordered Nausea/Vomiting Control: Adequate, Prn Tx Ordered Complications Possibly Related to Anesthesia: None Noted
[2018-08-30] MEDS ORDERED: HYDROmorphONE/DILAUDID 2 MG/ML INJ ONE (17:42)
[2018-08-30] MEDS ORDERED: HYDROmorphONE/DILAUDID 2 MG/ML INJ IVP ONE (17:45)
[2018-08-30] MEDS ORDERED: ONDANSETRON 4 MG/2 ML VIAL ONE (20:00)
[2018-08-30] MEDS: oxyCODONE IR 5 MG TAB PO PRN (21:32)
[2018-08-31] MEDS: oxyCODONE IR 5 MG TAB PO PRN (03:08)
[2018-08-31] MEDS: ACETAMINOPHEN 325 MG TAB PO PRN (09:00)
[2018-08-31] MEDS ORDERED: POLYETHYLENE GLYCOL 3350 17 GM PKT PO PRN (09:59)
[2018-08-31] MEDS ORDERED: MAGNESIUM HYDROXIDE 30 ML UDCUP PO PRN (09:59)
[2018-08-31] MEDS ORDERED: BISACODYL 10 MG SUPP PR PRN (09:59)
[2018-08-31] MEDS ORDERED: LACTULOSE 20 GM/30 ML UDCUP PO PRN (09:59)
--- NOTE | 2018-08-31 09:59 | SOAPPROG ---
SOAP Progress Note Assessment/Plan: Assessment: Rebeca is a very pleasant 57-year-old female with history of metastatic melanoma who was admitted for a symptomatic urinary tract infection alongside symptomatic ascites. 1. Metastatic melanoma: I reviewed her MRI results with her that shows innumerable brain metastasis. I discussed the role of systemic therapy with multifocal brain metastasis. I also discussed the role of radiation which could be considered for some of the larger lesions. 2. Symptomatic ascites: She is status post therapeutic paracentesis yesterday with 7 L removed. Will need to watch her blood pressure as it is slightly low and she is tachycardic 3. Urinary tract infection: She is currently on ceftriaxone. 08/31/18 09:57 Subjective: Doing well this morning. Did feel subjectively warm today. Abdomen feels slightly better after paracentesis. Objective: Vital Signs Temp Pulse Resp BP Pulse Ox 37.9 C 116 H 18 100/58 L 92 08/31/18 08:00 08/31/18 08:00 08/31/18 08:00 08/31/18 08:00 08/31/18 08:00 Laboratory Results 08/31/18 06:15 08/31/18 06:15 08/30/18 08/31/18 09/01/18 05:59 05:59 05:59 Intake Total 2090 1300 Output Total 7250 800 Balance -5160 500 PT 15.6 SEC (12.0-15.0) H 08/28/18 13:45 INR 1.22 (0.83-1.16) H 08/28/18 13:45 General: Pleasant-appearing female in no acute distress HEENT: Oropharynx clear extra movements are intact pupils equal round reactive to light Pulmonary: Clear to auscultation bilaterally Cardiovascular: Regular rate and rhythm, tachycardia noted Abdomen: Distended no fluid wave bowel sounds are present Extremities: Left-sided port noted. No cyanosis clubbing edema Skin: No skin lesions Neuro: Moving all extremities equally ICD10 Worksheet Patient Problems: Problems Problem Status Onset Breast cancer Acute
[2018-08-31] MEDS: APIXABAN 5 MG TAB PO SCH ×2 (12:14→20:54)
[2018-08-31] MEDS: ONDANSETRON 4 MG/2 ML VIAL IVP PRN (12:46)
[2018-08-31] MEDS: HYDROmorphONE/DILAUDID 1 MG/ML INJ IVP PRN ×3 (12:54→19:30)
[2018-08-31] MEDS: SCOPOLAMINE HYDROBROMIDE 1 MG/3 DAYS PATCH TD SCH (15:21)
[2018-08-31] MEDS: CALCIUM CARBONATE 500 MG CHEWABLE TAB PO PRN (17:51)
[2018-08-31] MEDS: PROMETHAZINE HCL 25 MG/ML INJ IVP PRN (17:52)
[2018-08-31] MEDS: traMADol 50 MG TAB PO PRN (18:44)
[2018-08-31] MEDS: SENNOSIDES/DOCUSATE SODIUM TAB PO SCH (20:54)
[2018-08-31] MEDS: ALPRAZolam 0.25 MG TAB PO PRN (20:54)
[2018-09-01] MEDS: traMADol 50 MG TAB PO PRN ×5 (01:50→19:59)
[2018-09-01 06:40] LABS: PLATELET COUNT 468 10^3/uL (150-400)
[2018-09-01] MEDS: SENNOSIDES/DOCUSATE SODIUM TAB PO SCH ×2 (07:39→20:00)
[2018-09-01] MEDS: APIXABAN 5 MG TAB PO SCH (08:17)
[2018-09-01] MEDS: ALPRAZolam 0.25 MG TAB PO PRN ×3 (08:17→20:00)
[2018-09-01] MEDS: PROMETHAZINE HCL 25 MG/ML INJ IVP PRN ×2 (08:22→18:41)
--- NOTE | 2018-09-01 09:40 | HOSPPROG ---
Hospitalist Progress Note Assessment/Plan: 57 yo female, metastatic melanoma admitted because of symptomatic ascites ascites: s/p therapeutic large volume paracentesis 08/29/2018 -per report pursuing immunotherapy so no palliative drain placed -re-accumulating hypotension and tachycardia: 2/2 volume loss from paracentesis/3rd spacing/low grade temps -s/p albumin -dc lisinopril/lasix -gentle IVF hydration anemia -s/p transfusion x 2 units (1 prev, 1 last nt) -watch closely melanoma, multiple brain mets -discussed with Dr Bravo re ongoing care plan/treatments uti, + pseudomonas -stop rocephin, change to LQ -bd cx neg to date fever -ongoing but low grade now -discussed with Dr Bravo, possible from tumor burden Hip pain, new onset -xray ordered bc of concern of bony metastasis -pain meds prn DVT prophy: anticoagulated as outpt with eliquis/on hold currently FULL CODE dispo: > 2 mdnts bc of ongoing fever, tachycardia, Subjective: Tired. L hip pain- quite severe. Daughter in room. No n/v/d. Thinks abdomen not as big as prev but has increased since paracentesis. Objective: Vital Signs Temp Pulse Resp BP Pulse Ox 99.4 F 119 H 18 94/68 L 95 09/01/18 07:18 09/01/18 07:18 09/01/18 07:18 09/01/18 07:18 09/01/18 07:18 Microbiology 08/29/18 06:16 Urine Culture - Final Urine,Clean Catch Pseudomonas Aeruginosa Laboratory Results 09/01/18 06:15 09/01/18 06:15 08/30/18 08/31/18 09/01/18 11:59 11:59 11:59 Intake Total 2090 1300 550 Output Total 7250 800 1100 Balance -5160 500 -550 PT 15.6 SEC (12.0-15.0) H 08/28/18 13:45 INR 1.22 (0.83-1.16) H 08/28/18 13:45 - Time Spent With Patient Time Spent with Patient: greater than 35 minutes Time Spent with Patient: Greater than 35 minutes spent on this patients care, greater than 50% of time spent counseling, educating, and coordinating care regarding the above mentioned plan. - Physical Exam Constitutional: uncomfortable Eyes: PERRL, anicteric sclera Ears, Nose, Mouth, Throat: moist mucous membranes, hearing normal Cardiovascular: regular rate and rhythym Respiratory: no rales or rhonchi, clear to auscultation, reduced air movement Gastrointestinal: normoactive bowel sounds, ascites, distension Skin: warm Psychiatric: interacting appropriately, not anxious, not encephalopathic ICD10 Worksheet Patient Problems: Problems Problem Status Onset Breast cancer Acute
--- NOTE | 2018-09-01 09:41 | SOAPPROG ---
SOAP Progress Note Assessment/Plan: Assessment: Rebeca is a very pleasant 57-year-old female with history of metastatic melanoma who was admitted for a symptomatic urinary tract infection alongside symptomatic ascites. 1. Metastatic melanoma: I reviewed her MRI results with her that shows innumerable brain metastasis. I discussed the role of systemic therapy with multifocal brain metastasis. I also discussed the role of radiation which could be considered for some of the larger lesions. 2. Symptomatic ascites: She is status post therapeutic paracentesis status post 7 L removed a few days ago. On examination today she has still fairly distended abdomen. I suspect that she will continue reaccumulate quickly. We will try to arrange a therapeutic paracentesis tomorrow. 3. Urinary tract infection: She has shay sensitive Pseudomonas. She was switched from ceftriaxone to Levaquin today. 4. Low-grade fevers and leukocytosis: Her white blood cell count jumped today to 17. Her previous paracentesis was not sent for culture. She did have blood cultures drawn today. If we can obtain a paracentesis tomorrow would be nice to send this for culture. Her low-grade temperatures could be from infection versus tumor fever. 5. 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 She was previously on apixaban. I have recommended holding that she has been off of it for 3 weeks and although brain metastasis is not an absolute contraindication it does come into consideration. 09/01/18 09:37 Subjective: Feels intermittent pain throughout the knees and hips this morning. Is getting out of bed with assistance. Denies any dysuria. Continues to have abdominal distention. No abdominal pain. No bowel movements this morning. Objective: Vital Signs Temp Pulse Resp BP Pulse Ox 37.4 C 119 H 18 94/68 L 95 09/01/18 07:18 09/01/18 07:18 09/01/18 07:18 09/01/18 07:18 09/01/18 07:18 Microbiology 08/29/18 06:16 Urine Culture - Final Urine,Clean Catch Pseudomonas Aeruginosa Laboratory Results 09/01/18 06:15 09/01/18 06:15 08/31/18 09/01/18 09/02/18 05:59 05:59 05:59 Intake Total 1300 550 Output Total 800 1100 Balance 500 -550 PT 15.6 SEC (12.0-15.0) H 08/28/18 13:45 INR 1.22 (0.83-1.16) H 08/28/18 13:45 General: Pleasant-appearing female appears in no acute distress HEENT: Oropharynx is clear, nasal cannula in place, pupils equal round reactive to light Cardiovascular: Regular rhythm no murmurs gallops or rubs Pulmonary: Clear to auscultation Neuro: Moving all extremities bilaterally Abdomen: Distended, slightly tense, bowel sounds are present, no rebound or guarding Extremities: Left-sided port in place no cyanosis clubbing or edema Skin: No skin lesions Psych: Appropriate affect ICD10 Worksheet Patient Problems: Problems Problem Status Onset Breast cancer Acute
--- NOTE | 2018-09-01 17:38 | ASMTCMCOM ---
CM Note CM Note Notes: Per chart review, patient pending acceptance from [facility], requires further info on disciplines required. Discharge likely in 1-2 days. CM to follow. Date Signed: 09/01/2018 05:37 PM Electronically Signed By:Mar Campos
--- NOTE | 2018-09-01 23:18 | HOSPPROG ---
Hospitalist Progress Note Assessment/Plan: 57 yo female, metastatic melanoma admitted because of symptomatic ascites ascites: s/p therapeutic large volume paracentesis 08/29/2018 -per report pursuing immunotherapy so no palliative drain placed -re-accumulating, ordered paracentesis for AM, diag/therapeutic -consider palliative drain in future as reaccumulating quickly, Dr Bravo concurs hypotension and tachycardia: 2/2 volume loss from paracentesis/3rd spacing/low grade temps -s/p albumin x 1, re-ordered -dc lisinopril/lasix -stopped IVF as not helping -bd cx redrawn, CXR without PNA -culture ascitic fluid with paracentesis tomorrow -MRI pelvis to ensure no infection in hip (will try to arrange MRI and paracentesis tomorrow with anesthesia sedation) anemia -s/p transfusion x 2 units PRBC -watch closely melanoma, multiple brain mets -discussed with Dr Bravo re ongoing care plan/treatments uti, + pseudomonas -stopped rocephin, changed to LQ -bd cx neg to date but repeat done today -repeat UA, CIID to ensure clearance fever -ongoing but low grade now -discussed with Dr Bravo, possible from tumor burden but concerning as elev WBC today -check ascitic fluid, hip MRI also and consider broadening abx depending upon results/labs/temps today/tonight Hip pain, new onset -xray revwd -pain meds prn helping -MRI ordered for tomorrow DVT prophy: anticoagulated as outpt with eliquis, restarted yesterday but on hold again per heme/onc FULL CODE dispo: > 2 mdnts bc of ongoing fever, tachycardia, ascites re-accumulation [facility] at discharge Subjective: Very tired, hip/knee hurting but less than yesterday. Says PET did show disease in L hip prev. Had a difficult time with anesthesia for MRI on Sun , not eager to have another MRI. No n/v/d/SOB. Stomach feels very distended again. Daughter and sister in room. Objective: Vital Signs Temp Pulse Resp BP Pulse Ox 99.3 F 129 H 16 105/65 95 09/01/18 20:00 09/01/18 20:00 09/01/18 20:00 09/01/18 20:00 09/01/18 20:00 Laboratory Results 09/01/18 06:15 09/01/18 06:15 08/31/18 09/01/18 09/02/18 11:59 11:59 11:59 Intake Total 9501 105 9220 Output Total 800 1100 Balance 500 -550 1500 PT 15.6 SEC (12.0-15.0) H 08/28/18 13:45 INR 1.22 (0.83-1.16) H 08/28/18 13:45 - Time Spent With Patient Time Spent with Patient: greater than 35 minutes Time Spent with Patient: Greater than 35 minutes spent on this patients care, greater than 50% of time spent counseling, educating, and coordinating care regarding the above mentioned plan. - Physical Exam Constitutional: uncomfortable Eyes: PERRL, anicteric sclera Ears, Nose, Mouth, Throat: moist mucous membranes, hearing normal Cardiovascular: tachycardia Respiratory: no rales or rhonchi, clear to auscultation, reduced air movement Gastrointestinal: normoactive bowel sounds, ascites, distension (tense/increased ) Skin: warm Psychiatric: interacting appropriately, not anxious, not encephalopathic ICD10 Worksheet Patient Problems: Problems Problem Status Onset Breast cancer Acute
[2018-09-02] MEDS ORDERED: ALBUMIN 25% 200 ML IV ONE ×2 (00:08→01:00)
[2018-09-02] MEDS: traMADol 50 MG TAB PO PRN ×4 (00:42→18:18)
[2018-09-02 05:40] LABS: PLATELET COUNT 445 10^3/uL (150-400)
[2018-09-02] MEDS: ALPRAZolam 0.25 MG TAB PO PRN ×3 (07:56→20:27)
--- NOTE | 2018-09-02 08:41 | HOSPPROG ---
Hospitalist Progress Note Assessment/Plan: #Metastatic melanoma: with innumerable brain mets -malignant ascites-> paracentesis today -followed by Lianne VALENTINE #Pseudomonas UTI: wasn't covered on CTX, now on Day 3 LQ #Leukocytosis: culture ascitic fluid, blood cultures negative #Hip pain: MRI pending under anesthesia #Hypotension: resolved #ABLA: s/p 2 units RBCs #Hypervolemic hyponatremia: restart home lasix once BP stable # Subjective: abdominal swollen, no pain Pain in left hip Objective: Vital Signs Temp Pulse Resp BP Pulse Ox 36.7 C 114 H 18 104/60 95 09/02/18 07:46 09/02/18 07:46 09/02/18 07:46 09/02/18 07:46 09/02/18 07:46 Laboratory Results 09/02/18 05:05 09/02/18 05:05 09/01/18 09/02/18 09/03/18 05:59 05:59 05:59 Intake Total 550 1700 Output Total 1100 Balance -550 1700 PT 15.6 SEC (12.0-15.0) H 08/28/18 13:45 INR 1.22 (0.83-1.16) H 08/28/18 13:45 - Time Spent With Patient Time Spent with Patient: greater than 35 minutes Time Spent with Patient: Greater than 35 minutes spent on this patients care, greater than 50% of time spent counseling, educating, and coordinating care regarding the above mentioned plan. - Physical Exam Constitutional: no apparent distress Eyes: PERRL Ears, Nose, Mouth, Throat: moist mucous membranes ICD10 Worksheet Patient Problems: Problems Problem Status Onset Metastatic malignant melanoma Acute Breast cancer Acute
[2018-09-02] MEDS ORDERED: LIDOCAINE 1% 300 MG/30 ML SDV ONE (09:26)
[2018-09-02] MEDS: SENNOSIDES/DOCUSATE SODIUM TAB PO SCH ×2 (12:37→20:27)
[2018-09-02] MEDS ORDERED: PROPOFOL/EMULSION 500 MG/50 ML BOTTLE IV ONE (13:18)
[2018-09-02] MEDS ORDERED: PROPOFOL 200 MG/20 ML VIAL ONE (13:18)
--- NOTE | 2018-09-02 14:03 | ASMTCMCOM ---
CM Note CM Note Notes: Updates sent to [facility] at their request. D/C date not known yet. CM will continue to follow. Date Signed: 09/02/2018 02:03 PM Electronically Signed By:JEANETTE Comer
[2018-09-02] MEDS ORDERED: PROMETHAZINE HCL 25 MG/ML INJ IVP PRN (14:46)
[2018-09-02] MEDS ORDERED: DEXAMETHASONE 4 MG/ML VIAL IVP PRN (14:46)
[2018-09-02] MEDS ORDERED: ONDANSETRON 4 MG/2 ML VIAL IVP PRN (14:46)
[2018-09-02] MEDS ORDERED: NALOXONE HCL 0.4 MG/ML INJ IVP PRN (14:46)
[2018-09-02] MEDS ORDERED: fentaNYL 100 MCG/2 ML INJ IVP PRN (14:46)
--- NOTE | 2018-09-02 14:46 | PDANEPAE ---
ANE Past Medical History - Cardiovascular History Hx Hypertension: No Hx Arrhythmias: No Hx Chest Pain: No Hx Coronary Artery / Peripheral Vascular Disease: No Hx CHF / Valvular Disease: No Hx Palpitations: No - Pulmonary History Hx COPD: No Hx Asthma/Reactive Airway Disease: No Hx Recent Upper Respiratory Infection: No Hx Oxygen in Use at Home: No Hx Sleep Apnea: No Sleep Apnea Screening Result - Last Documented: Negative - Neurologic History Hx Cerebrovascular Accident: No Hx Seizures: No Hx Dementia: No - Endocrine History Hx Diabetes: No Obesity: mild - Renal History Hx Renal Disorders: No Renal History Comment: recent uti, completed levaquin course - Liver History Hx Hepatic Disorders: No - Neurological & Psychiatric Hx Hx Neurological and Psychiatric Disorders: Yes Neurological / Psychiatric History Comment: anxiety - Cancer History Hx Cancer: Yes Cancer History Comment: breast cancer currently. melanoma. currently oral chemo/ hx of radiation - Congenital Disorder History Hx Congenital Disorders: No - GI History GERD: no Hx Gastrointestinal Disorders: Yes Gastrointestinal History Comment: nausea with chemo occ - Other Health History Other Health History: reading glasses. rash that is side effect from chemo- left forearm - Chronic Pain History Chronic Pain: No - Surgical History Prior Surgeries: x3. bilateral mastectomy. melanoma removed. tonsillectomy ANE Review of Systems Review of Systems: ANE Patient History - Allergies Allergies/Adverse Reactions: Sulfa (Sulfonamide Antibiotics) Allergy (Verified 08/28/18 15:21) Flushing - Home Medications Home medications: home medication list seen and reviewed Home Medications: ALPRAZolam [Xanax 0.5 MG (*)] 0.5 mg PO TID PRN 07/10/18 [Last Taken 08/28/18 13 :00] Apixaban [Eliquis] 5 mg PO BID 07/10/18 [Last Taken 08/28/18 09:00] Ibuprofen [Ibu] 600 mg PO TID PRN 07/10/18 [Last Taken 08/28/18 13:00] Potassium Chloride [Klor-Con M20] 20 meq PO DAILY 07/10/18 [Last Taken 08/28/18] Prochlorperazine Maleate [Compazine 10mg (*)] 10 mg PO TID PRN 07/10/18 [Last Taken 08/28/18 09:00] traMADol [Ultram 50 mg (*)] 50 mg PO Q4 PRN 07/10/18 [Last Taken 08/28/18 14:00] Furosemide [Lasix 20 MG (*)] 20 mg PO HS 08/28/18 [Last Taken 08/27/18] Lisinopril [Zestril 10 mg (*)] 10 mg PO DAILY 08/28/18 [Last Taken 08/28/18] Nystatin [Nystatin] 5 ml PO TID PRN 08/28/18 [Last Taken 08/27/18] Ondansetron HCl [Zofran] 8 mg PO Q8H PRN 08/28/18 [Last Taken Unknown] - NPO status NPO Status: no food or drink >8 hours - Anes Hx Anes Hx: no prior problems - Smoking Hx Smoking Status: Never smoked - Alcohol Use Alcohol Use: None - Family Anes Hx Family Hx Anesthesia Complications: none ANE Labs/Vital Signs - Labs Result Diagrams: 09/02/18 05:05 09/02/18 05:05 - Vital Signs Blood Pressure: 93/58 Heart Rate: 120 Respiratory Rate: 12 O2 Sat (%): 96 Height: 165.1 cm Weight: 73.437 kg ANE Physical Exam - Airway Neck exam: FROM Mallampati Score: Class 2 Mouth exam: normal dental/mouth exam - Pulmonary Pulmonary: no respiratory distress, no rales or rhonchi, clear to auscultation - Cardiovascular Cardiovascular: regular rate and rhythym, no murmur, rub, or gallop - ASA Status ASA Status: III ANE Anesthesia Plan Anesthesia Plan: GA w LMA
[2018-09-02] MEDS ORDERED: GADOBUTROL 10 ML VIAL IVP ONE (14:47)
--- NOTE | 2018-09-02 15:25 | HOSPPROG ---
Hospitalist Progress Note Assessment/Plan: #Metastatic melanoma: with innumerable brain mets -malignant ascites-> paracentesis today -followed by Lianne VALENTINE -immunotherapy outpatient per Onc #Pseudomonas UTI: wasn't covered on CTX, now on Day 3 LQ #Leukocytosis: culture ascitic fluid, blood cultures negative #Hypotension: afebrile. Evaluating hip and paracentesis #Hip pain: MRI pending under anesthesia #Hypotension: resolved #ABLA: s/p 2 units RBCs. No active bleeding #Hypervolemic hyponatremia: restart home lasix once BP stable #AHRF: due to abd distension, atelectasis. Encourage ambulation, IS #h/o IJ clot: Eliquis #Disp: inpatient admission for Case d/w Dr. Cortes Subjective: left hip pain with movement Objective: Vital Signs Temp Pulse Resp BP Pulse Ox 36.8 C 120 H 12 93/58 L 96 09/02/18 13:45 09/02/18 14:45 09/02/18 14:45 09/02/18 14:45 09/02/18 14:45 Microbiology 09/02/18 10:30 Gram Stain - Final Peritoneal Fluid - Aspirate Laboratory Results 09/02/18 05:05 09/02/18 05:05 09/01/18 09/02/18 09/03/18 05:59 05:59 05:59 Intake Total 550 1700 Output Total 1100 Balance -550 1700 PT 15.6 SEC (12.0-15.0) H 08/28/18 13:45 INR 1.22 (0.83-1.16) H 08/28/18 13:45 - Time Spent With Patient Time Spent with Patient: greater than 35 minutes Time Spent with Patient: Greater than 35 minutes spent on this patients care, greater than 50% of time spent counseling, educating, and coordinating care regarding the above mentioned plan. - Physical Exam Constitutional: chronically ill appearing Eyes: PERRL Ears, Nose, Mouth, Throat: moist mucous membranes Cardiovascular: regular rate and rhythym Respiratory: no respiratory distress Gastrointestinal: distension (firm, significant distension) Genitourinary: No holguin in urethra Skin: warm Musculoskeletal: other (FROM of left hip, some pain with flexion) Neurologic: AAOx3, CN II-XII Intact Psychiatric: interacting appropriately ICD10 Worksheet Patient Problems: Problems Problem Status Onset Metastatic malignant melanoma Acute Breast cancer Acute
[2018-09-02] MEDS ORDERED: ALBUMIN 25% 100 ML IV ONE (16:29)
--- NOTE | 2018-09-02 16:29 | POSTANESTH ---
Post Anesthetic Evaluation Cardiovascular Status: Similar to Pre-Op Cond Respiratory Status: Similar to Pre-op Cond. Level of Consciousness/Mental Status: Can Participate in Eval, Mildly Sleepy, Arousable Pain Control: Adequate, Prn Tx Ordered Nausea/Vomiting Control: Adequate, Prn Tx Ordered Complications Possibly Related to Anesthesia: None Noted
--- NOTE | 2018-09-02 19:39 | SOAPPROG ---
SOAP Progress Note Assessment/Plan: Assessment: Rebeca is a 77-year-old female with history of metastatic melanoma who was admitted for a symptomatic urinary tract infection alongside symptomatic ascites from progression of disease. 1. Metastatic melanoma: BRAF mutated. Progressed on BRAF and MEK inhibitor combination. While her prognosis is guarded, immunotherapy can have durable responses in patients with melanoma and worth trying to get her well enough to at least try nivolumab and ipilimumab combination therapy. This has OFFICE MESSENGER penetration, would start there with brain mets as without systemic control, local control of brain mets of questionable benefit. 2. Symptomatic malignant. ascites: She is status post therapeutic paracentesis status post 7 L removed a few days ago. -paracentesis today, to send for culture (associated with problem 4) 3. Complicated Urinary tract infection: She has shay sensitive Pseudomonas. On proper therapy. 4. Low-grade fevers and leukocytosis: Has had waxing and waning WBC and low grade temperature. Likely tumor related, infectious work up has been unremarkable, unlikely secondary peritonitis without osman fevers and abdominal tenderness. B/C 09/01 NGTD. 5. 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 She was previously on apixaban. She has been off for ~1 month, can consider restarting as an outpatient Sami Cortes Subjective: Patient reports feeling fair. NO fevers in the last 24 hours. Due for paracentesis today. B/C no growth to date. No subjective fevers chills or sweats. No dyspnea although is wearing o2. NO CP. Objective: Vital Signs Temp Pulse Resp BP Pulse Ox 37.0 C 125 H 16 100/63 94 09/02/18 17:45 09/02/18 18:09 09/02/18 18:09 09/02/18 18:09 09/02/18 18:09 Microbiology 09/02/18 10:30 Gram Stain - Final Peritoneal Fluid - Aspirate Laboratory Results 09/02/18 05:05 09/02/18 05:05 09/01/18 09/02/18 09/03/18 05:59 05:59 05:59 Intake Total 550 1700 1100 Output Total 1100 350 Balance -550 1700 750 PT 15.6 SEC (12.0-15.0) H 08/28/18 13:45 INR 1.22 (0.83-1.16) H 08/28/18 13:45 General: Pleasant-appearing female appears in no acute distress HEENT: Oropharynx is clear, nasal cannula in place, pupils equal round reactive to light Cardiovascular: Regular rhythm tachycardic rate no murmurs gallops or rubs Pulmonary: Clear to auscultation Neuro: Moving all extremities bilaterally Abdomen: Distended, slightly tense, bowel sounds are present, no rebound or guarding, no organomegaly Extremities: Left-sided port in place no cyanosis clubbing or edema Skin: No skin lesions Psych: Appropriate affect ICD10 Worksheet Patient Problems: Problems Problem Status Onset Metastatic malignant melanoma Acute Breast cancer Acute
[2018-09-02] MEDS ORDERED: PHENYLEPHRINE 10 MG/ML SDV ONE (20:00)
[2018-09-02] MEDS: oxyCODONE IR 5 MG TAB PO PRN (20:27)
[2018-09-03] MEDS: traMADol 50 MG TAB PO PRN ×2 (04:43→08:43)
--- NOTE | 2018-09-03 07:46 | PDPCPN ---
Palliative Care Progress Note Assessment/Plan: Assessment: Plan: 09/03/18 07:44 [facility] [address] [place] [id number] [phone] ([phone]) PALLIATIVE CARE NOTE Name: Rebeca Zamarripa : 60 Location: Home Date: 09/02/2018 PMH: Metastatic breast carcinoma HPI: Ms. Zamarripa is a 57-year-old female with a history of metastatic breast carcinoma. She was fairly recently found to have brain metastases. She had been doing quite well with her oral chemotherapy. She then had a PET scan last week which indicates significant abdominal disease as well as a new right shoulder metastases and left hip. She has now been admitted to [facility] for significant hypoxia and significant abdominal ascites. She has had 2 paracenteses draining a total of 11 L. Her hypoxia has improved. There currently awaiting pathology on the peritoneal fluid. Advanced Directives: not obtained at this time MDPOA: daughter Rianna Patient Goals of Care: 1. continue treatment 2. avoid hospitalizations 3. Resolution of her pressure ulcer RISK FACTORS FOR ADMISSION AND READMISSION TO THE HOSPITAL: Home Health Care Skilled needs: MINERAL RESOURCES INSPECTOR Intervention and Coordination: o CAREGIVER ANXIETY o EOL ADJUSTMENT CONCERNS Nurse Practitioner: o >2 HOSPITALIZATIONS IN PAST 12 MONTHS o DISEASE EDUCATION DEFICIT o HOSPICE ELIGIBLE OBJECTIVE FINDINGS Palliative Performance Score: 70 FAST: Not applicable NYHA: Not applicable Neuro: Awake and alert 3 HEENT: Normocephalic RESP: Lungs clear to auscultation bilaterally. CV: RRR S1-S2 GI: Abdomen is soft and still slightly distended. : Within normal limits MSK: mild muscle wasting SKIN: Intact LAB Data: ACTIVE SYMPTOMS/ASSESSMENTS/RECOMMENDATIONS 1. metastatic breast carcinoma C 50.919: Widely metastatic disease. A recent PET scan indicates rapid progression of disease. She is awaiting insurance approval for treatment with 2 immunotherapies. 2. Hypoxemia R09.02: Improved hypoxemia. Oxygen saturations 98% on 2 L. Delirium: 0- none Depression: 0- none Anxiety: 0-none Tiredness (fatigue): 5 Drowsiness (sleepiness): 0-none Pain: 0-none Nausea: 0-none Anorexia: 0-none Shortness of Breath: 0 Secretions: 0-none Constipation: 0-none Symptom and side effect management: Yes acceptable to patient and family. Prognosis: Months Hospice Eligibility: Goals not aligned Recommended Hospice Admitting Diagnosis: Not applicable Disposition: living safely and comfortably at home PALLIATIVE SUMMARY: Ms. Zamarripa is a 57-year-old female with widely metastatic breast cancer. She has now been found to have rapidly progressive disease. She was admitted to [facility]. She has had 2 paracenteses and we are awaiting pathology on the peritoneal fluid. We discussed today treatment option with the immunotherapies that had been planned. PLAN: Continue to evaluate for evidence of decline and need for increased level of care. ICER HAND: not scheduled at this time MINERAL RESOURCES INSPECTOR: referral made CC: Fax Visit Notes to PCP/oncologist Thank you for the opportunity to participate in the care of this patient. TIME SPENT: [id number] 35 min >50% of the time spent counseling, educating and coordinating the above topics. Addy King [facility] Objective: Vital Signs Temp Pulse Resp BP Pulse Ox 37.4 C 120 H 16 98/62 L 95 09/03/18 04:00 09/03/18 04:00 09/03/18 04:00 09/03/18 04:00 09/03/18 04:00 Microbiology 08/28/18 17:19 Blood Culture - Final Blood 08/28/18 17:04 Blood Culture - Final Blood 09/02/18 10:30 Gram Stain - Final Peritoneal Fluid - Aspirate Laboratory Results 09/03/18 04:40 09/03/18 04:40 09/02/18 09/03/18 09/04/18 05:59 05:59 05:59 Intake Total 1700 2100 Output Total 350 Balance 1700 1750 PT 15.6 SEC (12.0-15.0) H 08/28/18 13:45 INR 1.22 (0.83-1.16) H 08/28/18 13:45 ICD10 Worksheet Patient Problems: Problems Problem Status Onset Metastatic malignant melanoma Acute Breast cancer Acute
[2018-09-03] MEDS: SENNOSIDES/DOCUSATE SODIUM TAB PO SCH ×2 (08:27→22:16)
[2018-09-03] MEDS: ALPRAZolam 0.25 MG TAB PO PRN ×2 (08:27→20:00)
[2018-09-03] MEDS: PROMETHAZINE HCL 25 MG/ML INJ IVP PRN (09:16)
[2018-09-03] MEDS: LORazepam 2 MG/ML INJ IVP PRN (11:20)
--- NOTE | 2018-09-03 12:41 | GCON ---
ORTHOPEDIC CONSULTATION DATE OF CONSULTATION: 09/03/2018 REASON FOR CONSULTATION: 1. Metastatic lesion left femoral neck. 2. Old subacute subcapital fracture right, pubic rami fractures, metastatic on the right. HISTORY OF PRESENT ILLNESS: The patient is a 57-year-old female with metastatic melanoma and breast cancer with metastatic lesions both to her brain, abdomen, and extensive metastatic lesions in her pe lvis. She has undergone radiation to the right and has a subacute subcapital fracture there. Most o f her pain at this point is on the left hip. She has been walking with a cane. The patient was quit e sleepy at the time of the exam, but I did talk with her sister who was at her bedside. PRIOR MEDICAL HISTORY: Notable for metastatic melanoma and breast cancer with mets to the liver, bon e, brain, and peritoneal. She has had a DVT associated to a port. PRIOR SURGICAL HISTORY: Bilateral mastectomies with reconstructions. SOCIAL HISTORY: She has daughters and sisters here who are involved in her care. MEDICATIONS: See attached list. SOCIAL HISTORY: She does live in a ground level apartment. She has to walk down 1 flight of stairs to get down there. She does not smoke. No alcohol. PHYSICAL EXAM: GENERAL: She is resting comfortably in bed. EXTREMITIES: Leg lengths are equal. S he does have mild discomfort with motion of both hips. Compartments are soft. She has full extensio n of the hip on the left, 100 degrees of flexion, 30 of internal and external rotation with only mild discomfort. Motor strength is 5/5 throughout the bilateral lower extremities. IMAGING: Plain imaging: She has a subacute healing subcapital fracture on the right, metastatic pub ic rami fracture on the right. On the plain films of the left hip, I cannot see the metastatic lesio n. On the MRI completed yesterday, there is a large metastatic lesion involving the intertrochanteri c region in the neck. No cortical involvement at this point. No evidence of a pathologic fracture. ASSESSMENT: Metastatic melanoma and invasive ductal carcinoma of the breast with a new metastatic le lamar to the left hip. PLAN: At this point, there is no cortical involvement, so I do not think it is necessary to proceed with intramedullary nailing. She may be a good candidate for radiation therapy to try and shrink the size of the metastatic lesion in the left hip. I did explain if this lesion does start to involve t he cortex, then I would recommend a long intramedullary nail on that left hip and femur all the way t o the knee to protect it from pathologic fractures, and her sister acknowledged and understood that, so for the time being, we will talk with the oncologist, see if she is a candidate for radiation to t hat hip to see if we can get her some relief of the pain. I do want her to use a walker when she is up walking. She can be weightbearing as tolerated, but I want to try and distribute the forces a lit tle bit better through her pelvis and hips given the metastatic lesion on the left and the old subcap ital fracture on the right. /[id number]/MODL
[2018-09-03] MEDS: ACETAMINOPHEN 325 MG TAB PO PRN ×2 (12:45→20:02)
--- NOTE | 2018-09-03 12:49 | HOSPPROG ---
Hospitalist Progress Note Assessment/Plan: #Sepsis: 100.1, tachy, elevated WBC, PNA on CXR with elevated procalcitonin -Right breast incision site: no cellulitis. -Urine culture Pseudomonas; was on LQ 500mg, shld be 750mg. cover for HAP with Vanc/Cefepime, which will cover UTI too #Tachycardia: suspect fever. Has been off Eliquis for several days. If not improved, CTA for PE. Now on RA -give albumin to avoid further overload #consider thrombosis; was off Eliquis #Metastatic melanoma: with innumerable brain mets. Okay to restart Eliquis per Dr. Cortes -malignant ascites-> paracentesis 09/02 -followed by [facility] -immunotherapy outpatient per Onc #Pseudomonas UTI: now on Cefepime #Leukocytosis: plan as stated above #Hip pain: left femur necl pathologic fx. Appreciate Dr. Rae's eval. No pinning at this time; if erodes cortex then will proceed. XRT may be option #Hypotension: resolved #ABLA: s/p 2 units RBCs. No active bleeding #Hypervolemic hyponatremia: s/p paracentesis. Hold of lasix with sepsis #AHRF: resolved #h/o IJ clot: Eliquis #Disp: inpatient admission for Case d/w Dr. Cortes and Butch Critical care time spent: 35 min bedside evaluating patient, reviewing imagining , medications changes Addendum: now febrile to 100, tachy. CXR reveals infiltrate Subjective: no palps, chest pain or dizziness. Objective: Vital Signs Temp Pulse Resp BP Pulse Ox 38.2 C 135 H 20 113/67 90 L 09/03/18 12:00 09/03/18 12:00 09/03/18 12:00 09/03/18 12:00 09/03/18 12:00 Microbiology 09/02/18 10:30 Gram Stain - Final Peritoneal Fluid - Aspirate 08/28/18 17:19 Blood Culture - Final Blood 08/28/18 17:04 Blood Culture - Final Blood Laboratory Results 09/03/18 04:40 09/03/18 04:40 09/02/18 09/03/18 09/04/18 05:59 05:59 05:59 Intake Total 1700 2100 Output Total 350 Balance 1700 1750 PT 15.6 SEC (12.0-15.0) H 08/28/18 13:45 INR 1.22 (0.83-1.16) H 08/28/18 13:45 - Physical Exam Constitutional: chronically ill appearing Ears, Nose, Mouth, Throat: moist mucous membranes Cardiovascular: tachycardia, edema (+1-2 legs) Respiratory: reduced air movement Gastrointestinal: distension (less than yesterday, firm, no TTP) Genitourinary: No holguin in urethra Skin: warm, other (right breast surgical incision sutured, no purulence or redness) Musculoskeletal: other (pain with left hip flexion) Neurologic: AAOx3 Psychiatric: interacting appropriately Lymph, Heme, Immunologic: no cervical LAD ICD10 Worksheet Patient Problems: Problems Problem Status Onset Metastatic malignant melanoma Acute Breast cancer Acute
[2018-09-03] MEDS: APIXABAN 5 MG TAB PO SCH ×2 (13:54→22:17)
[2018-09-03] MEDS: SCOPOLAMINE HYDROBROMIDE 1 MG/3 DAYS PATCH TD SCH (13:54)
[2018-09-03] MEDS ORDERED: PATCH REMOVAL 1 EA PATCH TD SCH (14:00)
[2018-09-03] MEDS ORDERED: ALBUMIN 25% 100 ML IV ONE (14:12)
[2018-09-03] MEDS ORDERED: SODIUM POLY SULF 15 GM/60 ML BOTTLE PO ONE (15:07)
[2018-09-03] MEDS: VANCOMYCIN HCL/NORMAL SALINE 250 ML IV SCH (16:55)
--- NOTE | 2018-09-03 17:39 | SOAPPROG ---
SOAP Progress Note Assessment/Plan: Assessment: Rebeca is a 77-year-old female with history of metastatic melanoma who was admitted for a symptomatic urinary tract infection alongside symptomatic ascites from progression of disease. 1. Metastatic melanoma: BRAF mutated. Progressed on BRAF and MEK inhibitor combination. While her prognosis is guarded, immunotherapy can have durable responses in patients with melanoma and worth trying to get her well enough to at least try nivolumab and ipilimumab combination therapy. This has STRAIGHT[employer] G[employer]S penetration, would start there, as without systemic control, local control of brain mets of questionable benefit. 2. Symptomatic malignant. ascites: She is status post therapeutic paracentesis status post 7 L removed a few days ago. And 4L 09/02/18. No sign of infection from paracentesis on 09/02. 3. Urinary tract infection: She has shay sensitive Pseudomonas. Completed 3 days of therapy 4. Low-grade fevers and leukocytosis: Has had waxing and waning WBC and low grade temperature. Likely tumor related, infectious work up has been unremarkable. B/C 09/01 NGTD. Ascitic fluid unremarkable 5. 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 She was previously on apixaban. She has been off for ~1 month, would restart as brain metastasis increase VTE risk and she is already high risk with uncontrolled melanoma. Sami Cortes 09/03/18 17:40 Subjective: Patient reports feeling fine. She has some left sided hip pain which is persistent at ~5-6/10 in severity. No fevers or sweats. On NC. Abdomen feels better after paracentesis yesterday. Objective: Vital Signs Temp Pulse Resp BP Pulse Ox 37.8 C 131 H 16 114/68 97 09/03/18 16:00 09/03/18 16:00 09/03/18 16:00 09/03/18 16:00 09/03/18 16:00 Microbiology 09/02/18 10:30 Gram Stain - Final Peritoneal Fluid - Aspirate 08/28/18 17:19 Blood Culture - Final Blood 08/28/18 17:04 Blood Culture - Final Blood Laboratory Results 09/03/18 04:40 09/03/18 14:25 09/02/18 09/03/18 09/04/18 05:59 05:59 05:59 Intake Total 1700 2100 Output Total 350 Balance 1700 1750 PT 15.6 SEC (12.0-15.0) H 08/28/18 13:45 INR 1.22 (0.83-1.16) H 08/28/18 13:45 General: Pleasant-appearing female appears in no acute distress HEENT: Oropharynx is clear, wearing NC, pupils equal round reactive to light Cardiovascular: Regular rhythm tachycardic rate no murmurs gallops or rubs Pulmonary: decreased throughout, no dullness to percussion Neuro: Moving all extremities bilaterally Abdomen: Distended, softer, bowel sounds are present, no rebound or guarding, no organomegaly, + fluid pulse wave Extremities: Left-sided port in place no cyanosis clubbing or edema Skin: No skin lesions Psych: Appropriate affect ICD10 Worksheet Patient Problems: Problems Problem Status Onset Metastatic malignant melanoma Acute Breast cancer Acute
[2018-09-03] MEDS: ONDANSETRON 4 MG/2 ML VIAL IVP PRN (18:31)
[2018-09-03] MEDS: oxyCODONE IR 5 MG TAB PO PRN (19:58)
[2018-09-03] MEDS: HYDROmorphONE/DILAUDID 1 MG/ML INJ IVP PRN (20:59)
[2018-09-03] MEDS: CEFEPIME HCL 2 GM in NS 100 ML IV SCH (22:17)
[2018-09-04] MEDS: HYDROmorphONE/DILAUDID 1 MG/ML INJ IVP PRN ×2 (02:01→20:18)
[2018-09-04] MEDS: ACETAMINOPHEN 325 MG TAB PO PRN (02:06)
[2018-09-04] MEDS: VANCOMYCIN HCL/NORMAL SALINE 250 ML IV SCH (04:45)
[2018-09-04] MEDS: oxyCODONE IR 5 MG TAB PO PRN ×4 (04:46→15:12)
[2018-09-04] MEDS: CEFEPIME HCL 2 GM in NS 100 ML IV SCH (06:08)
[2018-09-04] MEDS: APIXABAN 5 MG TAB PO SCH (08:26)
[2018-09-04] MEDS: SENNOSIDES/DOCUSATE SODIUM TAB PO SCH ×2 (08:26→20:17)
--- NOTE | 2018-09-04 09:23 | HOSPPROG ---
Hospitalist Progress Note Assessment/Plan: #Sepsis: from aspiration PNA. Right breast incision site: no cellulitis. Ascitic fluid not c/w SBP #Aspiration PNA: Augmentin #Tachycardia: chronic, multifactorial: deconditioning, fever. Considerd PE, but stable on RA. No DVT in legs. Back on Eliquis. #Metastatic melanoma: with innumerable brain mets. Okay to restart Eliquis per Dr. Cortes -malignant ascites-> paracentesis 09/02. Repeat tap prior to DC -Dr. Cortes wants expedited discharge in order to receive immunotherapy. #Pseudomonas UTI: s/p treatment #Leukocytosis: improved on abx #Hip pain: left femur necl pathologic fx. Appreciate Dr. Rae's eval. No pinning at this time; if erodes cortex then will proceed. XRT may be option #Hypotension: resolved #ABLA: s/p 2 units RBCs. No active bleeding #Hypervolemic hyponatremia: s/p paracentesis. BID Lasix #AHRF: resolved #h/o IJ clot: Eliquis #Disp: inpatient admission for pain control. Plan for DC tomorrow to [facility]. Case d/w Dr. Cortes Additional direct care spent: 30min speaking with pt and daughter about goals, hospice care(11:30-12:00) Subjective: abd swelling Objective: Vital Signs Temp Pulse Resp BP Pulse Ox 36.4 C 117 H 14 104/66 93 09/04/18 08:34 09/04/18 08:34 09/04/18 08:34 09/04/18 08:34 09/04/18 08:34 Microbiology 09/02/18 10:30 Gram Stain - Final Peritoneal Fluid - Aspirate 08/28/18 17:19 Blood Culture - Final Blood 08/28/18 17:04 Blood Culture - Final Blood Laboratory Results 09/04/18 05:00 09/04/18 05:00 09/03/18 09/04/18 09/05/18 05:59 05:59 05:59 Intake Total 2100 1534 Output Total 350 300 Balance 1750 1234 PT 15.6 SEC (12.0-15.0) H 08/28/18 13:45 INR 1.22 (0.83-1.16) H 08/28/18 13:45 - Time Spent With Patient Time Spent with Patient: greater than 35 minutes Time Spent with Patient: Greater than 35 minutes spent on this patients care, greater than 50% of time spent counseling, educating, and coordinating care regarding the above mentioned plan. - Physical Exam Constitutional: no apparent distress Eyes: PERRL Ears, Nose, Mouth, Throat: moist mucous membranes Cardiovascular: tachycardia Respiratory: no respiratory distress Gastrointestinal: distension (firm, nontender), No tenderness, No rebound Genitourinary: no bladder fullness Skin: warm Musculoskeletal: full muscle strength Neurologic: AAOx3, CN II-XII Intact Psychiatric: interacting appropriately ICD10 Worksheet Patient Problems: Problems Problem Status Onset Metastatic malignant melanoma Acute Breast cancer Acute
[2018-09-04] MEDS: ONDANSETRON 4 MG/2 ML VIAL IVP PRN ×2 (10:05→15:16)
[2018-09-04] MEDS: ONDANSETRON DISINTEGRATING 4 MG TAB PO PRN ×2 (12:56→17:40)
--- NOTE | 2018-09-04 13:21 | ASMTCMCOM ---
CM Note CM Note Notes: Patient plan of care reviewed with MD. Per oncology they would like to see her receive her outpatient infusion as soon as possible. The family inquired about the possibility of the patient returning to [facility]. Spoke with Je who has sent for authorization. Family informed by BRENNEN Cotton that discharge most likely will occur tomorrow . CM to follow for needs. Plan: To SNF Discussed pt's case in rounds. Pt admitted for abdominal pain, ascites, anemia in the setting of metastatic melanoma with mets to liver, bone and brain. Pt current with [facility]. Referral sent to them. Pt to receive paracentesis today and discuss the possibility of placing a permanent drain with the hospitalist. Therapy evals pending. D/C needs TBD. Date Signed: 09/04/2018 01:21 PM Electronically Signed By:Janay Hammond RN
[2018-09-04] MEDS: FUROSEMIDE 20 MG TAB PO SCH (15:12)
[2018-09-04] MEDS: PROMETHAZINE HCL 25 MG/ML INJ IVP PRN (18:46)
[2018-09-04] MEDS: ALPRAZolam 0.25 MG TAB PO PRN (20:16)
[2018-09-04] MEDS: AMOXICILLIN/CLAVULANATE POT 875/125 MG TAB PO SCH (20:17)
[2018-09-04] MEDS: morphINE SR 15 MG TAB PO SCH (20:18)
--- NOTE | 2018-09-04 22:53 | SOAPPROG ---
SOAP Progress Note Assessment/Plan: Assessment: Rebeca is a 77-year-old female with history of metastatic melanoma who was admitted for a symptomatic urinary tract infection alongside symptomatic ascites from progression of disease. 1. Metastatic melanoma: BRAF mutated. Progressed on BRAF and MEK inhibitor combination. While her prognosis is guarded, immunotherapy can have durable responses in patients with melanoma and worth trying to get her well enough to at least try nivolumab and ipilimumab combination therapy. This has QA ANALYST penetration, would start there, as without systemic control, local control of brain mets of questionable benefit We had a osman conversation that without control of her melanoma, she would likely continue to have various set backs like UTI, increasing ascites and aspiration pneumonia/pneumonitis. While she may be "sick" from other things, we are running out of time to treat her melanoma and recommended she discharge at receive treatment for her melanoma above all else. 2. Symptomatic malignant. ascites: She is status post therapeutic paracentesis status post 7 L removed a few days ago. And 4L 09/02/18. No sign of infection from paracentesis on 09/02. 3. Urinary tract infection: She has shay sensitive Pseudomonas. Completed 3 days of therapy 4. RML infiltrate - seems clinically most consistent with aspiration pneumonitis given rapid onset and rapid symptomatic improvement. Recommend predefined course of augmetin 5. 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 She was previously on apixaban. She has been off for ~1 month, would restart as brain metastasis increase VTE risk and she is already high risk with uncontrolled melanoma. Sami Sophia 09/03/18 17:40 09/04/18 22:50 09/04/18 22:55 Subjective: Yesterday patient had acute worsening, was febrile and felt poorly. CXR showed right middle lobe infiltrate and she was put on vanc and zosyn. She reports feeling well today, no cough or pleurisy. No fevers chills or sweats. Breathing on room air. No other symptoms. Objective: Vital Signs Temp Pulse Resp BP Pulse Ox 37.7 C 126 H 18 106/75 94 09/04/18 20:49 09/04/18 20:49 09/04/18 20:49 09/04/18 20:49 09/04/18 20:49 Microbiology 09/01/18 14:21 Urine Culture - Final Urine,Clean Catch 09/02/18 10:30 Gram Stain - Final Peritoneal Fluid - Aspirate Laboratory Results 09/04/18 05:00 09/04/18 05:00 09/03/18 09/04/18 09/05/18 05:59 05:59 05:59 Intake Total 2100 1534 600 Output Total 350 300 Balance 1750 1234 600 PT 15.6 SEC (12.0-15.0) H 08/28/18 13:45 INR 1.22 (0.83-1.16) H 08/28/18 13:45 General: Pleasant-appearing female appears in no acute distress HEENT: Oropharynx is clear, wearing NC, pupils equal round reactive to light Cardiovascular: Regular rhythm tachycardic rate no murmurs gallops or rubs Pulmonary: decreased throughout, no dullness to percussion Neuro: Moving all extremities bilaterally Abdomen: Distended, softer, bowel sounds are present, no rebound or guarding, no organomegaly, + fluid pulse wave Extremities: Left-sided port in place no cyanosis clubbing or edema Skin: No skin lesions Psych: Appropriate affect ICD10 Worksheet Patient Problems: Problems Problem Status Onset Metastatic malignant melanoma Acute Breast cancer Acute
[2018-09-04] MEDS: LORazepam 2 MG/ML INJ IVP PRN (23:46)
[2018-09-05] MEDS: ALPRAZolam 0.25 MG TAB PO PRN ×3 (04:42→12:17)
[2018-09-05 07:55] VITALS: BP 99/62
[2018-09-05 08:31] LABS: INR 1.51 (0.83-1.16); PROTIME(PATIENT) 18.4 SEC (12.0-15.0)
[2018-09-05] MEDS: AMOXICILLIN/CLAVULANATE POT 875/125 MG TAB PO SCH (08:46)
[2018-09-05] MEDS: morphINE SR 15 MG TAB PO SCH (08:54)
[2018-09-05] MEDS: SENNOSIDES/DOCUSATE SODIUM TAB PO SCH (08:56)
[2018-09-05] MEDS ORDERED: LIDOCAINE 1% 300 MG/30 ML SDV ONE (09:33)
--- NOTE | 2018-09-05 09:42 | PDIAF ---
- Diagnosis Diagnosis: Malignant ascites Code Status: Full Code - Medication Management Discharge Medications: electronically signed and located in the Home Medication List. - Orders Services needed: Registered Nurse, Certified Freelance Art Director, Master Waiter/Waitress Bar , Physical Therapy, Occupational Therapy Isolation Type: None Diet Recommendation: no restrictions on diet Diet Texture: Regular Texture Diet Additional Instructions: Follow pain. Can uptitrate MS Contin. Follow Dr. Cortes, Oncology - Follow Up Care Current Providers and Referrals: Rosette Phillips MD [Primary Care Provider] - As per Instructions
--- NOTE | 2018-09-05 10:22 | GDS ---
DISCHARGE DIAGNOSES: 1. Metastatic melanoma, BRAF mutation 2. Symptomatic malignant ascites. 3. Pseudomonas urinary tract infection. 4. Aspiration pneumonia, right middle lobe. 5. Right internal jugular deep venous thrombosis. 6. Tachycardia. 7. Leukocytosis. 8. Left femur pathologic fracture. 9. Hypotension. 10. Acute blood loss anemia. 11. Hypervolemic hyponatremia. 12. Acute hypoxic respiratory failure. 13. Sepsis. CONSULTATIONS: Oncology, Dr. Rae with Orthopedics. PROCEDURES: Therapeutic ultrasound x2. HISTORY OF PRESENT ILLNESS: A 57-year-old female with metastatic melanoma with metastasis to liver, bone, brain, and peritoneal carcinomatosis as well as stage III invasive ductal carcinoma, right breast, admitted with increased abdominal distention and pain. She had been responding well to vemurafenib and cobimetinib, but has progressed since July by PET scan. She has been awaiting insurance approval for a new immunotherapy. HOSPITAL COURSE BY PROBLEM: 1. Metastatic melanoma: Dr. Cortes wants expedited discharge in order for patient to receive her immunotherapy at [facility]. 2. Symptomatic malignant ascites: Status post 2 paracenteses. Studies not consistent with SBP. Arrange outpatient paracentesis for symptom relief. Offered drain placement for symptomatic relief but patient declined. 3. Sepsis, secondary to aspiration pneumonia: Will transition to Augmentin for a total of 5 days. 4. History of a right IJ clot: Restarted on Eliquis. 5. Tachycardia, multifactorial, with infection, deconditioning: This is sinus tach on EKG. 6. Acute blood loss anemia: Transfused 2 units, last 08/30/2018. H/H stable, 08/21. 7. Pseudomonas urinary tract infection, status post treatment with Levaquin. 8. Left femur pathologic fracture: Dr. Rae evaluated but does not recommend pinning at this time since not eroding through the cortex. Radiation therapy may be an option. 9. Hypotension, multifactorial, with paracentesis, infection. This is resolved. 10. Hypervolemic hyponatremia: I am holding Lasix with soft blood pressure. This may be continued as tolerates. 11. Acute hypoxic respiratory failure secondary to atelectasis and pneumonia: She will be discharged on oxygen. 12. Goals: She is followed by [facility]. 13. Acute on chronic pain: Start MS Contin with p.r.n. oxycodone. 14. Constipation: Continue bowel regimen. Had a BM today. DISPOSITION: Patient is stable for discharge to [facility]. FOLLOWUP: 1. Oncology for immunotherapy, possible radiation therapy. 2. Outpatient paracentesis for symptomatic relief. MEDICATIONS: See medication reconciliation. Time spent on discharge greater than 45minutes coordinating with Case Management , bedside with family discussing followup plan. /[id number]/MODL MTDD
--- NOTE | 2018-09-05 10:42 | PDPCPN ---
Palliative Care Progress Note Assessment/Plan: Assessment: Plan: 09/03/18 07:44 [facility] [address] [place] [id number] [phone] ([phone] PALLIATIVE CARE NOTE Name: Rebeca Zamarripa : 60 Location: Home Date: 09/02/2018 PMH: Metastatic breast carcinoma HPI: Ms. Zamarripa is a 57-year-old female with a history of metastatic breast carcinoma. She was fairly recently found to have brain metastases. She had been doing quite well with her oral chemotherapy. She then had a PET scan last week which indicates significant abdominal disease as well as a new right shoulder metastases and left hip. She has now been admitted to [facility] for significant hypoxia and significant abdominal ascites. She has had 2 paracenteses draining a total of 11 L. Her hypoxia has improved. There currently awaiting pathology on the peritoneal fluid. Advanced Directives: not obtained at this time MDPOA: daughter Rianna Patient Goals of Care: 1. continue treatment 2. avoid hospitalizations 3. Resolution of her pressure ulcer RISK FACTORS FOR ADMISSION AND READMISSION TO THE HOSPITAL: Home Health Care Skilled needs: PROJECT MANAGER FINANCE Intervention and Coordination: o CAREGIVER ANXIETY o EOL ADJUSTMENT CONCERNS Nurse Practitioner: o >2 HOSPITALIZATIONS IN PAST 12 MONTHS o DISEASE EDUCATION DEFICIT o HOSPICE ELIGIBLE OBJECTIVE FINDINGS Palliative Performance Score: 70 FAST: Not applicable NYHA: Not applicable Neuro: Awake and alert 3 HEENT: Normocephalic RESP: Lungs clear to auscultation bilaterally. CV: RRR S1-S2 GI: Abdomen is soft and still slightly distended. : Within normal limits MSK: mild muscle wasting SKIN: Intact LAB Data: ACTIVE SYMPTOMS/ASSESSMENTS/RECOMMENDATIONS 1. metastatic breast carcinoma C 50.919: Widely metastatic disease. A recent PET scan indicates rapid progression of disease. She is awaiting insurance approval for treatment with 2 immunotherapies. 2. Hypoxemia R09.02: Improved hypoxemia. Oxygen saturations 98% on 2 L. Delirium: 0- none Depression: 0- none Anxiety: 0-none Tiredness (fatigue): 5 Drowsiness (sleepiness): 0-none Pain: 0-none Nausea: 0-none Anorexia: 0-none Shortness of Breath: 0 Secretions: 0-none Constipation: 0-none Symptom and side effect management: Yes acceptable to patient and family. Prognosis: Months Hospice Eligibility: Goals not aligned Recommended Hospice Admitting Diagnosis: Not applicable Disposition: living safely and comfortably at home PALLIATIVE SUMMARY: Ms. Zamarripa is a 57-year-old female with widely metastatic breast cancer. She has now been found to have rapidly progressive disease. She was admitted to [facility]. She has had 2 paracenteses and we are awaiting pathology on the peritoneal fluid. We discussed today treatment option with the immunotherapies that had been planned. PLAN: Continue to evaluate for evidence of decline and need for increased level of care. DATABASE MODELER: not scheduled at this time PROJECT MANAGER FINANCE: referral made CC: Fax Visit Notes to PCP/oncologist Thank you for the opportunity to participate in the care of this patient. TIME SPENT: [id number] 35 min >50% of the time spent counseling, educating and coordinating the above topics. Addy King [facility] Subjective: [facility] [address] [place] [id number] (O) [phone](F) PALLIATIVE CARE NOTE Name: Nhan Vargas Age: [age] year old Visit Type: Initial Palliative Visit Location: Home Date: 09/04/2018 Level of Care: Hospice watch DIAGNOSES: 1. Bacterial Pneumonia 2. COPD CC: Initial Palliative care visit today. Complains on continued cough. HPI: Patient is an 80 year old male, recently hospitalized at [facility] for Bacterial Pneumonia and Sepsis. He was initially admitted to [facility] on July 15, 2018 for Community Acquired Bacterial Pneumonia and Sepsis. He was discharged home with oxygen on July 16. He reports he was home for a few days when his oxygen stopped working. He was readmitted to the hospital on July 22 with increasing shortness of breath and weakness. He was once again treated with IV antibiotics and fluids. He discharged to [facility] in [place] on August 02, 2018. He recently returned home on August 20, 2018 on home oxygen, continued antibiotics and PT/OT/HH services. While in rehabilitation he developed C. difficile. He then developed a right upper lobe pneumonia and a spontaneous pneumothorax. He has since been readmitted to [facility]. His chest tube has been removed. His oxygen saturations have been in the low 90s on 5 L. He desaturates significantly with minimal activity. The plan is to discharge again to rehabilitation however they have limitations with regard to oxygen being above 5 L. No discharge date is set at this time. PMH: COPD, spinal stenosis, diastasis recti, ulcerative colitis, CKD 3, and HTN. Allergies: Sulfa- dizziness, Steroid myopathy, NSAIDS Family Hx: Mother- large cell thyroid cancer; Father- Stroke and PA. 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 Advance Directives: Full Code with selective treatment.He wishes to change this and will be working with his sister and criminal defense attorney. MDPOA: Jocelin Mcgee- sister. Still need paperwork. Patient Goals of Care: 1. Stay out of the hospital 2. Breathe better, quit coughing ACTIVE SYMPTOMS/ASSESSMENTS/RECOMMENDATIONS 1. Cough- Patient was recently hospitalized twice for Community Acquired bacterial pneumonia. Went to [facility] for rehab. Discharged home on Vancomycin. He reports continued hacking, productive cough. Sputum is clear. He denies fever or chills. Currently taking Mucinex 1200 mg BID. Recommended to increase fluid intake to help thin secretions. 2. Bacterial Pneumonia- Patient recently hospitalized and then D/C to [facility]. Discharged home on Vancomycin tapering dose schedule. See med list for schedule. Patient denies fever or chills. Continue antibiotic as ordered.He now has been hospitalized again for a right upper lobe pneumonia which is resolving. 3. Shortness of breath- Patient reports occasional shortness of breath, mostly with exertion. He was discharged home on oxygen after first hospitalization. Currently using 5 L/min of O2. Continue to monitor and hopefully titrate to off. 4. Weight loss- Patient reports he weighed 165 lbs. one month ago before being hospitalized. Now his weight is 143 lbs. He reports he now has a good appetite and "eating like crazy." 5. Debility- Patient reports before hospitalization he has been using a 4 wheeled walker, ever since his spinal fusion last August. He currently has a walker on every level of his home so he doesn't need to carry them up and down stairs. 6. Prognosis: Months to years. 7. Hospice Eligibility: No: Does not meet criteria 8. Recommended Hospice Admitting Diagnosis: N/A MODIFIED [place] SYMPTOM ASSESSMENT SCALE 0-none; 1-3 mild; 4-6 moderate; 7-10 severe Unable to Respond: No Delirium: 0-none Depression: 0-none Anxiety: 0- none Tiredness (fatigue): 1-3 mild Drowsiness (sleepiness): 0-none Pain: 0-none Nausea: 0-none Anorexia: 0-none Shortness of Breath:5 Secretions: 7-10 severe Constipation: 0-none Symptom and side effect management: acceptable to patient and family. RISK FACTORS FOR ADMISSION AND READMISSION TO THE HOSPITAL: o NEEDS ASSISTANCE WITH ADL'S/FALL RISK- No o MEDICATION MANAGEMENT- No o SKILLED CARE NEEDED- No o LIVES ALONE- Yes o CAREGIVER ANXIETY- No o HISTORY OF NONCOMPLIANCE WITH MEDICATION- No o HOMELESSNESS- No o DIAGNOSIS OF COGNITIVE IMPAIRMENT- No o MENTAL HEALTH DISORDER (i.e. ANXIETY, DEPRESSION)- No o COMPROMISED FINANCIAL STATUS- No o NEEDS MEDICAL COVERAGE- No o NEEDS PRIMARY CARE PHYSICIAN- No o INADEQUATE SUPPORT SYSTEM- No o INADEQUATE TRANSPORTATION- No o >2 HOSPITALIZATIONS IN PAST 12 MONTHS- Yes o DISEASE EDUCATION DEFICIT- No OBJECTIVE FINDING Palliative Performance Score: 70 FAST: N/A NYHA: N/A Wt.: MAC: N/A Vitals: Respirations 20, Pulse ox 92% on 5 l/min O2. Neuro: A&O to person, place, time and event; Pleasant and cooperative, able to recite medical history. HEENT: Normocephalic; atraumatic. Mucous membranes pink, moist. No dysphagia. RESP: Regular, deep, symmetrical. Clear, diminished throughout with expiratory wheezing bilaterally. Strong productive cough with clear sputum. On oxygen at 5 L/min. CV: S1/S2, HR regular. Radial and pedal pulses 2+ bilaterally. 1+ LE edema. GI: Abdomen soft, round, non-tender to palpation. Bowel sounds present times 4. Continent. : Occasionally incontinent. Wears Depends due to having to take Flomax. MSK: Well nourished. Ambulatory with 4 wheeled walker. SKIN: dry, intact. Bruising noted to bilateral forearms. LAB Data: N/A Medications: Advance Care Planning he recently completed a most form for CPR with selective treatment. He states that he will be working with his sister and criminal defense attorney to change this to full treatment for 7 days. PALLIATIVE SUMMARY: he has had several recent hospitalizations and rehabilitation stays. He has now been readmitted to [facility] for a right upper lobe pneumonia and a spontaneous pneumothorax. His chest tube has an removed. He is currently on 5 L of oxygen. He desaturates with minimal activity. The hope is that his oxygen requirements will continue to improve so that he can be discharged to rehabilitation again as they have limitations of 5 L of oxygen. We will continue to follow this patient for support, symptom management, and end-of-life discussions. PLAN: DATABASE MODELER: follow-up after discharge. LPalliative Supportive Services: CN and SW to follow. Thank you for the opportunity to participate in the care of this patient. TIME SPENT: [id number] 35 minutes >50% of the time spent counseling, educating and coordinating the above topics. Addy King [facility] Objective: Vital Signs Temp Pulse Resp BP Pulse Ox 36.6 C 117 H 16 99/62 L 94 09/05/18 07:50 09/05/18 07:50 09/05/18 07:50 09/05/18 07:50 09/05/18 07:50 Microbiology 09/02/18 10:30 Gram Stain - Final Peritoneal Fluid - Aspirate Body Fluid Culture - Final 09/05/18 00:14 - Final Sputum, Expectorated 09/01/18 14:21 Urine Culture - Final Urine,Clean Catch Laboratory Results 09/05/18 04:50 09/05/18 04:50 09/04/18 09/05/18 09/06/18 05:59 05:59 05:59 Intake Total 1534 900 Output Total 300 500 Balance 1234 400 PT 18.4 SEC (12.0-15.0) H 09/05/18 08:00 INR 1.51 (0.83-1.16) H 09/05/18 08:00 ICD10 Worksheet Patient Problems: Problems Problem Status Onset Metastatic malignant melanoma Acute Breast cancer Acute
[2018-09-05] MEDS: PROMETHAZINE HCL 25 MG/ML INJ IVP PRN (10:53)
[2018-09-05] MEDS: FUROSEMIDE 20 MG TAB PO SCH (12:17)
--- NOTE | 2018-09-05 12:53 | ASMTLACE ---
LACE Length of stay for Answers: 7-13 days current admission Acuity / Level of Answers: Yes Care: Did the patient have an inpatient admission? Comorbidities - select Answers: Any tumor (including all that apply lymphoma or leukemia) # of Emergency department Answers: 1-2 visits in the last 6 months Score: 11 Date Signed: 09/05/2018 12:52 PM Electronically Signed By:Janay Hammond RN
--- NOTE | 2018-09-08 09:19 | ASDISCHSUM ---
Discharge Information Plan Status:SNF Medically Cleared to Leave:09/04/2018 Discharge Date:09/05/2018 01:10 PM D/C Disposition:Intermediate Facility ADT D/C Disposition:Intermediate Facility Projected Discharge Date:09/05/2018 11:00 AM Transportation at D/C: Discharge Delay Reason: Follow-Up Date:09/05/2018 11:00 AM Discharge Slot: Final Diagnosis: Placement Information Referral Type:Palliative Care Referral ID:-[id number] Provider Name:[facility] Address 1:[address] [facility] Phone Number: Address 2: Fax Number: [facility]:[place] Selection Factors: State:[place] Referral Type:*Home Health Care Services Referral ID:[id number] Provider Name: Address 1: Phone Number: Address 2: Fax Number: City: Selection Factors: State: Referral Type:*[facility]itentiary/SNF Referral ID:[id number] Provider Name:[facility] Address 1:[address] [facility] Phone Number: Address 2: Fax Number: [facility]:[place] Selection Factors: State:[place] Patient Contact Information Contact Name:ALPHONSE Relationship:Daughter Address: Work Phone: City:[place] Alternate Phone: [facility]/Zip Code:[place] Email: Financial Information Financial Class:[employer] [facility] Primary Plan Number:[id number] Secondary Plan Desc: Secondary Plan Number: Assessment Information LACE LACE Length of stay for Answers: 7-13 days current admission Acuity / Level of Answers: Yes Care: Did the patient have an inpatient admission? Comorbidities - select Answers: Any tumor (including all that apply lymphoma or leukemia) # of Emergency department Answers: 1-2 visits in the last 6 months Score: 11 Date Signed: 09/05/2018 12:52 PM Electronically Signed By:Janay Hammond RN [facility] CM Progress Note CM Note CM Note Notes: Discussed pt's case in rounds. Pt admitted for abdominal pain, ascites, anemia in the setting of metastatic melanoma with mets to liver, bone and brain. Pt current with [facility]. Referral sent to them. Pt to receive paracentesis today and discuss the possibility of placing a permanent drain with the hospitalist. Therapy evals pending. D/C needs TBD. D/C Plan: [facility] and possibly home health RN? Date Signed: 08/29/2018 12:57 PM Electronically Signed By:Karina Soto [facility] CM Progress Note CM Note CM Note Notes: Pt lives with daughter and son-in-law and had paracentesis yesterday, then had hypotension. PT recommending home care and pt has worked with [facility] in the past and liked them. Referral sent to [facility]. Likely discharge for tomorrow. Pt also current with [facility] and referral sent to them as well. CM to follow. D/C Plan: Home with , likely [facility], pending acceptance. Date Signed: 08/30/2018 02:25 PM Electronically Signed By:Karina Soto [facility] CM Progress Note CM Note CM Note Notes: Per chart review, patient pending acceptance from [facility], requires further info on disciplines required. Discharge likely in 1-2 days. CM to follow. Date Signed: 09/01/2018 05:37 PM Electronically Signed By:Mar Campos [facility] CM Progress Note CM Note CM Note Notes: Updates sent to [facility] at their request. D/C date not known yet. CM will continue to follow. Date Signed: 09/02/2018 02:03 PM Electronically Signed By:JEANETTE Comer [facility] CM Progress Note CM Note CM Note Notes: Patient plan of care reviewed with . Per oncology they would like to see her receive her outpatient infusion as soon as possible. The family inquired about the possibility of the patient returning to [facility]. Spoke with Je who has sent for authorization. Family informed by BRENNEN Cotton that discharge most likely will occur tomorrow . CM to follow for needs. Plan: To SNF Discussed pt's case in rounds. Pt admitted for abdominal pain, ascites, anemia in the setting of metastatic melanoma with mets to liver, bone and brain. Pt current with [facility]. Referral sent to them. Pt to receive paracentesis today and discuss the possibility of placing a permanent drain with the hospitalist. Therapy evals pending. D/C needs TBD. Date Signed: 09/04/2018 01:21 PM Electronically Signed By:Janay Hammond RN Intervention Information
== END 2018-09-05 13:10 | DRG 374 ==
LOC: F1N 17:45
PROVIDERS: ADMIT Internal Medicine; ATTEND Internal Medicine
PROC: 30233N1 Transfusion of Nonautologous Red Blood Cells into Peripheral Vein, Percutaneous Approach (ICD-10-PCS; 2018-08-28)
PROC: 0W9G3ZZ Drainage of Peritoneal Cavity, Percutaneous Approach (ICD-10-PCS; principal; 2018-08-29)
PROC: 0W9G3ZZ Drainage of Peritoneal Cavity, Percutaneous Approach (ICD-10-PCS; 2018-09-02)
DX: C78.6 Secondary malignant neoplasm of retroperitoneum and peritoneum (principal); J69.8 Pneumonitis due to inhalation of other solids and liquids; A41.9 Sepsis, unspecified organism; J96.01 Acute respiratory failure with hypoxia; R18.0 Malignant ascites; C78.7 Secondary malignant neoplasm of liver and intrahepatic bile duct; C79.51 Secondary malignant neoplasm of bone; C79.31 Secondary malignant neoplasm of brain; N39.0 Urinary tract infection, site not specified; M84.552A Pathological fracture in neoplastic disease, left femur, initial encounter for fracture; D62 Acute posthemorrhagic anemia; E87.1 Hypo-osmolality and hyponatremia; J98.11 Atelectasis; E86.0 Dehydration; B96.5 Pseudomonas (aeruginosa) (mallei) (pseudomallei) as the cause of diseases classified elsewhere; E87.70 Fluid overload, unspecified; G89.29 Other chronic pain; K21.9 Gastro-esophageal reflux disease without esophagitis; Z85.3 Personal history of malignant neoplasm of breast; Z90.13 Acquired absence of bilateral breasts and nipples; Z79.01 Long term (current) use of anticoagulants
CPT/HCPCS: 97110-GP; 97116-GP; 97161-GP; 97166-GO; 97535-GO; A9585; J0692; J0696; J1170; J2060; J2250; J2370; J2405; J2550; J2704; J3370; P9016; P9047